=== PATIENT | male | born 1955 | race Caucasian/White ===

== ENCOUNTER 2020-04-26 10:50 | Outpatient (CLI) | payer MEDICARE, BC, SELFPAY ==
--- NOTE | ~2020-04-26 | US_ITS ---
EXAMINATION: US aorta [facility] scrn DATE: 04/26/2020 11:37 CDT INDICATION: High cholesterol TECHNIQUE: Grayscale, color Doppler, and pulsed Doppler images of the aorta and common iliac arteries were obtained. COMPARISON: None. FINDINGS: The proximal aorta measures 2.4 cm greatest sagittal dimension. The mid aorta measures 2.1 cm greates t sagittal dimension. The distal aorta measures 1.9 cm greatest sagittal dimension. The right common internal iliac artery measures 8 mm. The left common iliac artery measures 9 mm. IMPRESSION: 1. Normal caliber aorta without aneurysm. Reviewed, dictated and finalized at location B.
== END 2020-04-26 10:51 | disposition home or self-care (01) ==
LOC: ANHIMG 10:53
PROVIDERS: PCP Internal Medicine; Visit Provider Internal Medicine
DX: Z13.6 Encounter for screening for cardiovascular disorders (principal)
CPT/HCPCS: 76706

== ENCOUNTER 2020-11-01 12:21 | Outpatient (CLI) | payer MEDICARE, BC, SELFPAY ==
--- NOTE | ~2020-11-01 | US_ITS ---
EXAMINATION: US carotid duplex BI DATE: 11/01/2020 13:12 INDICATION: Syncope. TECHNIQUE: Grayscale, color Doppler, and pulsed Doppler images of the cervical carotid arteries were obtained. The degree of vessel stenosis is placed in one of the following categories: normal, <50%, 5 0-69%, >=70% but less than near-occlusion, near-occlusion, or total occlusion. Note that percent sten osis relative to normal distal artery lumen diameter is indirectly measured from velocity measurement s as described by Moisés, et al. Radiology 2003; 229:340-346. COMPARISON: None. FINDINGS: RIGHT: The right common carotid artery (CCA) peak systolic velocity (PSV) is 108 cm/s. The right internal ca rotid artery (ICA) PSV is 78 cm/s. The right ICA end-diastolic velocity (EDV) is 24 cm/s. The right I CA/CCA PSV ratio is 0.7. Grayscale and color Doppler images yield an estimate of <50% diameter reduct ion from plaque in the ICA. There is antegrade flow in the right vertebral artery. LEFT: The left CCA PSV is 93 cm/s. The left ICA PSV is 65 cm/s. The left ICA EDV is 24 cm/s. The left ICA/C CA PSV ratio is 0.7. Grayscale and color Doppler images yield an estimate of <50% diameter reduction from plaque in the ICA. There is antegrade flow in the left vertebral artery. IMPRESSION: 1. <50% stenosis in the right internal carotid artery. 2. <50% stenosis in the left internal carotid artery. Reviewed, dictated and finalized at location A.
--- NOTE | ~2020-11-01 | MR_ITS ---
EXAMINATION: MR brain/brain stem wo con DATE: 11/01/2020 14:10 INDICATION: Lightheadedness. Syncope. Personal history of other diseases of the nervous system. TECHNIQUE: Magnetic resonance imaging (MRI) of the brain and brainstem was performed without intraven ous contrast. Sequences included sagittal and axial T1-weighted FSE, axial diffusion-weighted FS EPI, axial T2*-weighted GRE, axial T2-weighted FLAIR Propeller, and axial T2-weighted Propeller. Apparent diffusion coefficient (ADC) maps were created. COMPARISON: None. FINDINGS: There are acute infarcts in left cerebellum in the expected distribution of left posterior inferior cerebellar artery. There is no intracranial hemorrhage or abnormal mass lesion. There are sc attered areas of nonspecific increased T2-weighted signal intensity in the cerebral white matter, whi ch is within normal limits for the patient's age. The ventricles are normal in size. There is mucosal thickening in the paranasal sinuses. The orbits are normal. There is a trace left mastoid effusion. IMPRESSION: 1. 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 Reviewed, dictated and finalized at location A. IMPRESSION: 1. 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
== END 2020-11-01 12:22 | disposition home or self-care (01) ==
PROVIDERS: PCP Internal Medicine; Visit Provider Internal Medicine
DX: R55 Syncope and collapse (principal); Z86.69 Personal history of other diseases of the nervous system and sense organs; I65.23 Occlusion and stenosis of bilateral carotid arteries; R93.0 Abnormal findings on diagnostic imaging of skull and head, not elsewhere classified
CPT/HCPCS: 70551; 93880

== ENCOUNTER → 2021-05-14 16:11 | Outpatient (CLI) | payer MEDICARE, BC, SELFPAY ==
--- NOTE | ~2021-05-14 | XR_ITS ---
XR knee LT 3V 05/14/2021 16:37 Indication: Left knee pain Procedure: 3 views left knee Comparison: No prior studies for comparison. Findings: No fracture, subluxation or dislocation. There is mild osteoarthritis. Small joint effusion . No foreign bodies. Impression: 1: Mild osteoarthritis of the left knee. 2: Small joint effusion. Reviewed, dictated and finalized at location A. 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 2: Small joint effusion.
== END ==
PROVIDERS: PCP Family Medicine; Visit Provider Family Medicine
DX: M17.12 Unilateral primary osteoarthritis, left knee (principal); M25.462 Effusion, left knee
CPT/HCPCS: 73562

== ENCOUNTER 2021-11-22 10:00 | Outpatient (RCR) | payer MEDICARE, BC, SELFPAY ==
--- NOTE | 2021-10-25 09:55 | PTOPEVAL ---
PHYSICAL THERAPY EVALUATION AND PLAN OF CARE 10-25-21 Thank you for referring Caleb Barbosa to [facility] for the diagnosis of L knee pain.? He is scheduled to be seen for therapy? 1 x/week for 4 weeks. Please review, sign, date and return this plan of care JULIA. I agree with and certify that the following plan of care is medically necessary. Referring Physician Date Attending Provider: Tha Venegas APN Past Medical History Source of Past Medical History Patient Neurological History Hx Other Neurological Disorders Yes: saw neurologist for gait imbalance,tests show dehydration Cardiovascular History Hx Hypercholesterolemia Yes: meds Respiratory History Hx Respiratory Disorders No Significant History Gastrointestinal History Hx Gastrointestinal Disorders No Significant History Musculoskeletal History Hx Back Pain Yes: do stretches daily to help; see chiropractor PRN Hx Other Musculoskeletal Disorders Yes: L knee pain- this PT admit Endocrine History Hx Endocrine Disorders No Significant History Other History Hx Other Medical Conditions Yes: skin cancer removed- benign Evaluation Information Diagnosis L knee pain Onset May 2021 Subjective Information had pop in back of knee with Query Text:As Reported By Patient/ swelling; saw general dr, Family then to ortho; had injection in knee 10-15-21: helped little, but with walking 2 miles- pain returned ; Diagnostic Tests X-Rays For This Problem Yes: mild OA Prior Level of Function Activity Level (Last 3 Months) Occupation retired Activity of Daily Living Ability Independent Indoor/Home Mobility Independent Community Mobility Independent Stairs Ability Independent Functional Cognition (Planning, Shopping Independent , Taking Medications) Cooking Yes Cleaning Yes Laundry Yes Shopping Yes Driving Yes Comments Additional Prior Level of Function normal activity level, could Comments walk 2 miles without pain; bicycle riding- not done in past 3 weeks, but was doing 10 -15 miles; play volleyball with people his age; indep with all home tasks, but takes longer due to move
--- NOTE | 2021-11-08 08:25 | PCPTNOTE ---
pt called and canceled appointment due to covid exposure.
--- NOTE | 2021-11-22 10:37 | PTOPEVAL ---
PHYSICAL THERAPY DISCHARGE 11-22-21 Refer to clinical summary below, for his status today, compared to the initial evaluation. The goals were achieved; discharge PT services. He is to continue with the Home Exercises and use of leukotape for pain control. Thank you for referring Caleb Barbosa to [facility].? Please review, sign, date and return this [employer] Report JULIA. I agree with and certify that the following plan of care is medically necessary. Referring Physician Date Attending Provider: Tha Venegas APN Subjective Information Amado reports: knee is better- Query Text:As Reported By Patient/ less pain, walking normal now, Family went for 4 bike rides of 12 miles each this week; only time had trouble with sleeping , when on R side and L knee twisted; using the tape--helps the knee; Pain Assessment Pain Scale Pain Scale Used Numeric (1 - 10) Self Report Pain Assessment Left Knee(s) Reported Pain Level 1 Pain Description Soreness Pain Frequency Chronic,Intermittent Other Pain Description medial knee joint and posterior knee Lowest Pain Intensity 0 Greatest Pain Intensity 3 Other Pain Aggravating Factors not sure what causes it, as go on and do things during day Pain Score Pain Score 1: Self Report Additional Pain Score Comments report can be up and moving all day, pain in knee does not limit any activity; pt to dept with leukotape strip over medial knee- reports using to ease pain Interventions Used Interventions Used By Clinicians Education,Exercise Other Alleviating Interventions leukotape; no meds or ice-- reinforced PRN use of ice Lower Extremity Range of Motion prone: anterior hip/quad Comments length with knee flexion: R 135' / L 120' sitting: knee flexion 135' extension 0' without pain Gross Lower Extremity Strength functional strength testing L LE: - single leg standin min with good stability -mat exercises with 4# ankle wt: -prone knee flexion x 30 reps; prone hip extension x 20 reps; side lying hip abduction x 25 reps; griffith
== END 2022-01-13 11:55 | disposition home or self-care (01) ==
LOC: ANHPT 10:00
PROVIDERS: PCP Family Medicine; Referring Provider Nurse Practitioner; Visit Provider Nurse Practitioner
DX: M25.562 Pain in left knee (principal)
CPT/HCPCS: 97110; 97112; 97161; 97530

== ENCOUNTER 2022-02-04 09:47 | Outpatient (CLI) | payer MEDICARE, BC, SELFPAY ==
[2022-02-04 20:22] LABS: Alanine Aminotransferase 16 U/L (6-50); Alkaline Phosphatase 109 U/L (38-126); Anion Gap 7 mmol/L (8-16); Aspartate Amino Transferase 32 U/L (17-59); Bilirubin,Total 0.5 mg/dL (0.2-1.3); Blood Urea Nitrogen 17 mg/dL (9-20); Carbon Dioxide 29 mmol/L (22-30); Chloride 99 mmol/L (98-107); Cholesterol 172 mg/dL (0-200); Estimated Glomerular Filt Rate > 60; Glucose 97 mg/dL (65-110); HDL Direct 39 mg/dL; Potassium 4.3 mmol/L (3.4-5.0); Sodium 135 mmol/L (137-145); Triglycerides 107 mg/dL (<150)
[2022-02-04 20:37] LABS: LDL Cholesterol Direct 99 mg/dL
[2022-02-04 20:50] LABS: Prostate Specific Antigen 1.6 ng/mL (< OR = 4.0)
== END 2022-02-04 09:48 | disposition home or self-care (01) ==
LOC: ANHGOSHLAB 09:56
PROVIDERS: PCP Family Medicine; Visit Provider Family Medicine
DX: Z13.228 Encounter for screening for other metabolic disorders (principal); E78.5 Hyperlipidemia, unspecified; Z12.5 Encounter for screening for malignant neoplasm of prostate
CPT/HCPCS: 36415; 80053; 80061; 84153; G0103

== ENCOUNTER 2023-01-29 08:18 | Outpatient (CLI) | payer MEDICARE, BC, SELFPAY ==
[2023-01-29 13:18] LABS: Alanine Aminotransferase 28 U/L (6-50); Albumin Level 4.1 g/dL (3.5-5.1); Alkaline Phosphatase 112 U/L (38-126); Anion Gap 5 mmol/L (8-16); Aspartate Amino Transferase 47 U/L (17-59); Bilirubin,Total 0.9 mg/dL (0.2-1.3); Blood Urea Nitrogen 20 mg/dL (9-20); Calcium 8.9 mg/dL (8.4-10.2); Carbon Dioxide 29 mmol/L (22-30); Chloride 100 mmol/L (98-107); Cholesterol 180 mg/dL (0-200); Estimated Glomerular Filt Rate > 60; Glucose 97 mg/dL (65-110); HDL Direct 43 mg/dL; Potassium 4.3 mmol/L (3.4-5.0); Sodium 134 mmol/L (137-145); Triglycerides 84 mg/dL (<150)
[2023-01-29 13:34] LABS: LDL Cholesterol Direct 105 mg/dL
[2023-01-29 13:47] LABS: Prostate Specific Antigen 1.4 ng/mL (< OR = 4.0)
== END 2023-01-29 08:19 | disposition home or self-care (01) ==
LOC: ANHGOSHLAB 08:21
PROVIDERS: PCP Family Medicine; Visit Provider Family Medicine
DX: E78.5 Hyperlipidemia, unspecified (principal); Z12.5 Encounter for screening for malignant neoplasm of prostate; Z13.228 Encounter for screening for other metabolic disorders
CPT/HCPCS: 36415; 80053; 80061; 84153; G0103

== ENCOUNTER 2023-10-16 09:48 | Outpatient (CLI) | payer MEDICARE, BC, SELFPAY ==
--- NOTE | ~2023-10-16 | XR_ITS ---
EXAM: XR knee RT min 4V DATE: 10/16/2023 10:07 HISTORY: no injury right knee pain for 1-2 years . COMPARISON: None available. FINDINGS: Decreased mineralization. No fracture or dislocation. No lytic or blastic lesion. Mild tri compartmental osteophytosis. Trace joint fluid. No erosion or periosteal change. Minimal atherosclero tic calcification. IMPRESSION: Mild tricompartmental right knee osteoarthritis. Reviewed, dictated and finalized at location K.
--- NOTE | ~2023-10-16 | XR_ITS ---
EXAM: XR shoulder LT min 2V DATE: 10/16/2023 10:04 HISTORY: no injury left shoulder pain for many years . COMPARISON: None available. FINDINGS: Decreased mineralization. No fracture or dislocation. No lytic or blastic lesion. Moderate glenohumeral and mild AC joint degenerative change. Calcification in the superior rotator cuff. No e rosion or periosteal change. Soft tissues within normal limits. IMPRESSION: Calcific rotator cuff tendinitis. Moderate glenohumeral and mild acromioclavicular osteoa rthritis. Reviewed, dictated and finalized at location K. IMPRESSION: Calcific rotator cuff tendinitis. Moderate glenohumeral and mild ac romioclavicular osteoarthritis.
== END 2023-10-16 09:49 ==
PROVIDERS: PCP Family Medicine; Visit Provider Family Medicine
DX: M75.32 Calcific tendinitis of left shoulder (principal); M19.012 Primary osteoarthritis, left shoulder; M17.11 Unilateral primary osteoarthritis, right knee
CPT/HCPCS: 73030; 73564

== ENCOUNTER 2023-11-15 15:43 | Emergency (ER) | payer MEDICARE, BC, SELFPAY ==
--- NOTE | ~2023-11-15 | XR_ITS ---
EXAMINATION: XR chest 2V DATE: 11/15/2023 16:10 INDICATION: Shortness of breath. TECHNIQUE: Frontal and lateral views of the chest were obtained. COMPARISON: None. FINDINGS: There is no pneumonia, pleural effusion, or pneumothorax. The heart size is normal. There i s mild chronic anterior wedging of multiple thoracic vertebral bodies. IMPRESSION: 1. No acute cardiopulmonary disease. Reviewed, dictated and finalized at location E.
--- NOTE | ~2023-11-15 | CT_ITS ---
EXAMINATION: CTA chest PE protocol DATE: 11/15/2023 18:23 INDICATION: Shortness of breath. TECHNIQUE: Computed tomography angiography (CTA) of the chest was performed with 100 mL Omnipaque-350 intravenous contrast timed to evaluate the pulmonary arteries. Coronal maximum intensity projection 3D-reconstructions were created by the technologist. Automated exposure control and iterative reconst ruction technique were employed. The dose-length product was 569.20 mGy-cm. COMPARISON: None. FINDINGS: The lungs demonstrate mild atelectasis. No pleural effusion. The heart size is normal. No p ericardial effusion. There is no pulmonary embolus. There is mild thoracic spondylosis. There is mild chronic height loss of multiple vertebral bodies. IMPRESSION: 1. No pulmonary embolus. Reviewed, dictated and finalized at location E. IMPRESSION: 1. No pulmonary embolus.
[2023-11-15 15:44] VITALS: BP 149/65; PULSE 72; RESP 20; TEMP 37.2; O2SAT 98
--- NOTE | 2023-11-15 15:49 | ED.SOB ---
HPI - SOB/Dyspnea General Chief Complaint: Shortness of Breath/Dyspnea Stated Complaint: difficulty breathing, low grade fever Time Seen by Provider: 11/15/23 15:47 History of Present Illness HPI Narrative: Patient is a 68-year-old male with history of high cholesterol here with difficulty breathing and a fever. Patient notes that symptoms began yesterday. He has had a fever over the last couple days, T-max 101? F. He did take ibuprofen around 2:00 p.m. for his symptoms today. He notes associated shortness of breath, it worsens with any exertion. No cardiac history. No history of PE/DVT/heart failure. No known sick contacts. He denies any increasing cough. Patient's son advised him to come to the emergency department today due to his significant increased work of breathing at home. Patient denies any associated abdominal pain, nausea, vomiting, diarrhea. No urinary symptoms. He has chronic nasal congestion year round this is not changed recently. Related Data Home Medications Medication Instructions Recorded Confirmed cholecalciferol (vitamin D3) 50 50 mcg PO DAILY 10/15/21 10/19/23 mcg (2,000 unit) capsule coenzyme Q10 100 mg capsule 100 mg PO DAILY 10/15/21 10/19/23 loratadine 10 mg capsule 10 mg PO DAILY 10/15/21 10/19/23 felsgdbakcyx-rsyhllau-gqxvad tablet 1 tablet PO DAILY 10/15/21 10/19/23 saw palmetto 450 mg capsule 450 mg PO BID 10/15/21 10/19/23 ascorbic acid (vitamin C) 1,000 mg 1 g PO DAILY 06/26/22 10/19/23 capsule cranberry extract 650 mg capsule 1,300 mg PO DAILY 06/26/22 10/19/23 Allergies Allergy/AdvReac Type Severity Reaction Status Date / Time desmopressin Allergy Unknown rash Verified 11/15/23 16:03 minocycline Allergy Unknown unknown Verified 11/15/23 16:03 Review of Systems Review of Systems: All systems reviewed & are unremarkable except as noted in HPI and below PMFSH Past Medical History Medical History History of basal cell cancer Hyperlipidemia Surgical History Surgical History H/O vasectomy Family History Family History Grandparent Family history of arthritis Family history of Alzheimer's disease Mother Family history of arthritis Family history of Alzheimer's disease Heart disease Sibling Family history of lung cancer Family history of malignant neoplasm of uterus Family history of malignant neoplasm of breast in first degree relative Diabetes mellitus Father Family history of alcoholism Social History Social History Smoking status: Never smoker Alcohol intake: current Drinks per week: 2 Alcohol use details: Beer Substance use: never Substance use type: does not use Lack of Transportation: No Lack of Food: Never True Current Housing: I Have Housing Concerned About Future Housing: No Difficulty Paying Gas/Electric Bills: No Difficulty Paying for Meds: No Currently Unemployed: No Difficulty w/ Childcare or Family Care: No Living arrangements: with family Gender identity (if verbalized by the patient): Male Exam Narrative: GENERAL: Well-appearing, well-nourished, and in no acute distress. HEAD: Normocephalic, atraumatic. EYES: PERRLA and EOMI. ENT: Nares clear. Mucous membranes moist. NECK: Supple. CHEST: Clear to auscultation. No respiratory distress. HEART: Regular rate and rhythm. Normal peripheral pulses. ABDOMEN: Soft, nontender, nondistended. EXTREMITIES: Normal range of motion. No edema. SKIN: Warm to touch, dry, no rash. NEURO: No focal deficits. Alert and oriented x3. PSYCH: Normal mood and affect. Course Course Emergency Course: Chart review performed. Patient here with shortness of breath and low grade fever since yesterday. Triage vitals grossly normal. Last PCP visit on 10/15/23 revi
[2023-11-15 16:00] VITALS: PULSE 79; O2SAT 95
[2023-11-15 16:01] VITALS: BP 144/82; PULSE 77; RESP 16; TEMP 37.3; O2SAT 96
[2023-11-15 16:24] LABS: Basophils Percent Auto 0.2 % (0.2-1.2); Eosinophils Absolute Auto 0.4 K/mm3 (0-0.3); Eosinophils Percent Auto 3.2 % (0-4.4); Hematocrit 47.5 % (42.0-52.0); Immature Granulocyte Absolute 0.09 K/mm3 (0.00-0.031); Immature Granulocyte Percent A 0.7 % (0-0.5); Lymphocytes Absolute Auto 0.45 K/mm3 (0.9-3.2); Lymphocytes Percent Auto 3.5 % (18.3-44.2); Mean Corpuscular HGB Conc 33.7 g/dl (32-36); Mean Corpuscular Hemoglobin 30.9 pg (26-34); Mean Corpuscular Volume 91.9 fl (80-100); Mean Platelet Volume 9.7 fl (7.4-10.4); Monocytes Absolute Auto 0.7 K/mm3 (0.1-0.6); Monocytes Percent Auto 5.3 % (2.6-8.5); Neutrophils Absolute Auto 11.1 K/mm3 (1.3-6.7); Neutrophils Percent Auto 87.1 % (45.5-73.1); Platelet Count Result 152 k/mm3 (150-375); Red Blood Count 5.17 M/mm3 (4.6-6.20); Red Cell Distribution Width 12.4 % (11.5-14.5); White Blood Count 12.7 K/mm3 (4.5-10.0)
[2023-11-15 16:34] LABS: Alanine Aminotransferase 35 U/L (6-50); Albumin Level 4.1 g/dL (3.5-5.1); Alkaline Phosphatase 174 U/L (38-126); Anion Gap 6 mmol/L (4-12); Aspartate Amino Transferase 33 U/L (17-59); Bilirubin,Total 1.1 mg/dL (0.2-1.3); Blood Urea Nitrogen 14 mg/dL (9-20); Carbon Dioxide 24 mmol/L (22-30); Chloride 99 mmol/L (98-107); Estimated CRCL calculation 77 ml/min; Estimated Glomerular Filt Rate > 60; Glucose 150 mg/dL (65-110); Magnesium 1.5 mg/dL (1.6-2.3); Sodium 129 mmol/L (137-145)
--- NOTE | 2023-11-15 16:40 | ECG_ITS ---
SEE SCANNED COPY FOR CONFIRMED REPORT MTDD
[2023-11-15 16:43] LABS: NT Pro B Type Natriuretic Pept 157 pg/mL (19.9-100)
[2023-11-15 16:59] LABS: Influenza A QL RT-PCR Negative (Negative); Influenza B QL RT-PCR Negative (Negative); RSV RNA, RT-PCR Negative (Negative); SARS-CoV-2 RNA PCR Negative (Negative)
[2023-11-15] MEDS: LACTATED RINGERS 1,000 ML 999 ML IV CONT (16:59)
[2023-11-15] MEDS: ACETAMINOPHEN 500 MG TABLET 1000 MG PO (16:59)
[2023-11-15 17:11] LABS: Troponin I < 0.012 ng/mL (0.000-0.034)
[2023-11-15 17:25] LABS: D Dimer 1.45 ug/mL (<0.48)
[2023-11-15] MEDS: MAGNESIUM SULF 2 GM/WATER 50ML 2 GM/50 ML BAG IVPB (18:01)
[2023-11-15 18:04] VITALS: BP 128/68; PULSE 60; RESP 19; O2SAT 95
[2023-11-15 20:11] VITALS: BP 132/71; PULSE 60; RESP 19; O2SAT 95
== END 2023-11-15 20:13 | disposition home or self-care (01) ==
PROVIDERS: Emergency Provider Student in an Organized Health Care Education/Training Program; PCP Family Medicine
DX: J06.9 Acute upper respiratory infection, unspecified (principal); R06.02 Shortness of breath; Z20.822 Contact with and (suspected) exposure to COVID-19; E78.00 Pure hypercholesterolemia, unspecified; Z85.828 Personal history of other malignant neoplasm of skin; R94.31 Abnormal electrocardiogram [ECG] [EKG]
CPT/HCPCS: 36415; 71046; 71275; 80053; 83735; 83880; 84484; 85025; 85380; 87637; 93005; 96361; 96365; 96366; 99284; A9270; J3475; J7120; Q9967

== ENCOUNTER 2023-11-20 09:15 | Outpatient (CLI) | payer MEDICARE, BC, SELFPAY ==
[2023-11-20 18:51] LABS: Hematocrit 47.6 % (42.0-52.0); Hemoglobin 15.5 g/dL (14.0-18.0); Mean Corpuscular HGB Conc 32.6 g/dl (32-36); Mean Corpuscular Hemoglobin 30.6 pg (26-34); Mean Corpuscular Volume 93.9 fl (80-100); Platelet Count Result 158 k/mm3 (150-375); Red Blood Count 5.07 M/mm3 (4.6-6.20); Red Cell Distribution Width 13.1 % (11.5-14.5); White Blood Count 12.5 K/mm3 (4.5-10.0)
[2023-11-20 19:24] LABS: Alanine Aminotransferase 146 U/L (6-50); Albumin Level 3.6 g/dL (3.5-5.1); Alkaline Phosphatase 516 U/L (38-126); Anion Gap 5 mmol/L (4-12); Aspartate Amino Transferase 79 U/L (17-59); Blood Urea Nitrogen 17 mg/dL (9-20); Carbon Dioxide 29 mmol/L (22-30); Chloride 100 mmol/L (98-107); Estimated Glomerular Filt Rate > 60; Glucose 140 mg/dL (65-110); Potassium 3.7 mmol/L (3.4-5.0); Sodium 134 mmol/L (137-145)
== END 2023-11-20 09:16 | disposition home or self-care (01) ==
LOC: ANHGOSHLAB 09:17
PROVIDERS: PCP Family Medicine; Visit Provider Family Medicine
DX: Z13.228 Encounter for screening for other metabolic disorders (principal); R53.83 Other fatigue
CPT/HCPCS: 36415; 80053; 85025

== ENCOUNTER 2023-11-27 08:12 | Outpatient (CLI) | payer MEDICARE, BC, SELFPAY ==
[2023-11-27 13:36] LABS: Alanine Aminotransferase 114 U/L (6-50); Albumin Level 4.1 g/dL (3.5-5.1); Alkaline Phosphatase 305 U/L (38-126); Anion Gap 5 mmol/L (4-12); Aspartate Amino Transferase 71 U/L (17-59); Bilirubin,Total 1.1 mg/dL (0.2-1.3); Blood Urea Nitrogen 24 mg/dL (9-20); Calcium 8.9 mg/dL (8.4-10.2); Carbon Dioxide 29 mmol/L (22-30); Chloride 101 mmol/L (98-107); Estimated Glomerular Filt Rate > 60; Glucose 110 mg/dL (65-110); Potassium 4.6 mmol/L (3.4-5.0); Sodium 135 mmol/L (137-145)
== END 2023-11-27 08:13 | disposition home or self-care (01) ==
PROVIDERS: PCP Family Medicine; Visit Provider Family Medicine
DX: Z13.228 Encounter for screening for other metabolic disorders (principal)
CPT/HCPCS: 36415; 80053

== ENCOUNTER 2023-12-07 08:37 | Outpatient (CLI) | payer MEDICARE, BC, SELFPAY ==
[2023-12-07 13:13] LABS: Alanine Aminotransferase 60 U/L (6-50); Albumin Level 4.2 g/dL (3.5-5.1); Alkaline Phosphatase 182 U/L (38-126); Anion Gap 7 mmol/L (4-12); Aspartate Amino Transferase 58 U/L (17-59); Bilirubin,Total 1.1 mg/dL (0.2-1.3); Blood Urea Nitrogen 15 mg/dL (9-20); Calcium 9.5 mg/dL (8.4-10.2); Carbon Dioxide 27 mmol/L (22-30); Chloride 103 mmol/L (98-107); Estimated Glomerular Filt Rate > 60; Glucose 104 mg/dL (65-110); Potassium 4.4 mmol/L (3.4-5.0); Sodium 137 mmol/L (137-145)
== END 2023-12-07 08:38 | disposition home or self-care (01) ==
PROVIDERS: PCP Family Medicine; Visit Provider Family Medicine
DX: Z13.228 Encounter for screening for other metabolic disorders (principal)
CPT/HCPCS: 36415; 80053

== ENCOUNTER 2024-01-12 11:00 | Outpatient (RCR) | payer MEDICARE, BC, SELFPAY ==
--- NOTE | 2023-10-22 16:26 | OPREHPOC ---
Outpatient Therapy Plan of Care This is a Multidisciplinary Plan of Care that may contain components documented by all disciplines (PT, OT, and ST.) PT Problem 1 PT Problem #1 Knowledge Deficit PT Goal 1 Goal Pt to be IND with issued HEP Target Visit 8 PT Problem 2 PT Problem #2 Pain PT Goal 1 Goal Pt to report knee pain no greater than 3/10 in the last week. Target Visit 8 PT Goal 2 Goal Pt to report 75% improvement in overall symptoms. Target Visit 8 PT Problem 3 PT Problem #3 Impaired Range of Motion PT Goal 1 Goal Pt to demonstrate 10 deg of passive hip extension antonio Target Visit 8 PT Goal 2 Goal Pt to demonstrate prone knee flexion ROM to 110 deg Target Visit 8 PT Problem 4 PT Problem #4 Impaired Gait PT Goal 1 Goal Pt to ambulate with an upright posture. Target Visit 8 PT Problem 5 PT Problem #5 Impaired Strength PT Goal 1 Goal Pt to demonstrate 5xSTS in less than 15s. Target Visit 8
--- NOTE | 2023-10-22 16:26 | PTOPEVAL1 ---
Assessment and note entered by Leticia Tristan, PT, DPT Evaluation Information Assessment Status Evaluation Diagnosis R knee pain Onset 2-3 months Subjective Information Pt reports R knee pain, worsening in the last couple of months, today worse for whatever reason. Pt states he rides a bike 4-5x/wk and does some LE exercises he received previously from his L knee. He declines a ENZO. He states getting up from most low surfaces is what increases his pain the most. Pt also plays softball, plays pickleball, and dances. Reported Pain Level Pain Score 2: Self Report Assessment PT Clinical Summary Amado presents to therapy today for his initial evaluation with a diagnosis of R knee pain. Today he demonstrates good knee ROM and good hip strength. He demonstrates decreased hamstring, ITB , and hip flexor flexibility. He has poor patellar tracking d/t muscular imbalances. Pain limits his functional transfers and stair navigation. Skilled therapy services are indicated to address the deficits noted above, to manage pain, and to return to PLOF. Plan of Care Interventions Electrical Stimulation,Gait Training,Hot Pack/Cold Pack,Manual Therapy,Neuro Re-education,Patient/ Caregiver Educati,Therapeutic Activities, Therapeutic Exercise PT Services Indicated Yes Treatment Frequency and 1x/wk for 6 visits Duration These treatments will address the objective and functional deficits as defined above. The patient will be advanced safely and appropriately in order for the patient to progress towards his/her prior level of function. Additional exercises will be introduced and as well as a comprehensive home exercise program upon discharge, if needed, ?to ensure carryover of functional gains achieved in the clinic. This treatment plan has been reviewed and agreement upon by the patient.
--- NOTE | 2023-11-19 09:36 | PCPTNOTE ---
Patient called to cancel therapy appointment for 11/19/23 due to illness.
--- NOTE | 2023-11-27 16:38 | PTOPPROG ---
Assessment and note entered by Alex Fish, PT Evaluation Information Assessment Status Progress Diagnosis R knee pain Onset 2-3 months Subjective Information Patient reports that overall he has seen a lot of improvement in pain and knee ROM at this time. Overall he feels comfortable and confident with his He and has been doing consistently. HE plans to be traveling outside of the country and would like to follow up when he returns to ensure senior living progress. Assessment PT Clinical Summary Patient has seen excellent progress in knee pain, ROM, and strength. Overall he is independent with HEP but is still struggling with reciprocal climbing of stairs and deep squatting activity. He will be travelling to [place] for 1 month and will benefit from follow up upon return to ensure that he sees terminal gauger progress. Plan of Care Interventions Electrical Stimulation,Gait Training,Hot Pack/Cold Pack,Manual Therapy,Neuro Re-education,Patient/ Caregiver Education,Therapeutic Activities, Therapeutic Exercise PT Services Indicated Yes Treatment Frequency and 1x/week for 2 visits upon return from travel in Duration Mell These treatments will address the objective and functional deficits as defined above. The patient will be advanced safely and appropriately in order for the patient to progress towards his/her prior level of function. Additional exercises will be introduced and as well as a comprehensive home exercise program upon discharge, if needed, ?to ensure carryover of functional gains achieved in the clinic. This treatment plan has been reviewed and agreement upon by the patient.
--- NOTE | 2024-01-12 12:27 | OPREHPOC ---
Outpatient Therapy Plan of Care This is a Multidisciplinary Plan of Care that may contain components documented by all disciplines (PT, OT, and ST.) PT Problem 1 PT Problem #1 Knowledge Deficit PT Goal 1 Goal Pt to be IND with issued HEP Target Visit 8 Progress Met PT Problem 2 PT Problem #2 Pain PT Goal 1 Goal Pt to report knee pain no greater than 3/10 in the last week. Target Visit 8 Progress Met PT Goal 2 Goal Pt to report 75% improvement in overall symptoms. Target Visit 8 Progress Partially Met Comment Continues to struggle with some distal quad pain limiting stair activity PT Problem 3 PT Problem #3 Impaired Range of Motion PT Goal 1 Goal Pt to demonstrate 10 deg of passive hip extension antonio Target Visit 8 Progress Met PT Goal 2 Goal Pt to demonstrate prone knee flexion ROM to 110 deg Target Visit 8 Progress Met PT Problem 4 PT Problem #4 Impaired Gait PT Goal 1 Goal Pt to ambulate with an upright posture. Target Visit 8 Progress Met PT Problem 5 PT Problem #5 Impaired Strength PT Goal 1 Goal Pt to demonstrate 5xSTS in less than 15s. Target Visit 8 Progress Met PT Goal 2 Goal Patient will demonstrate ability to reciprocally climb and descend stairs without pain Target Visit 8 Progress Met
--- NOTE | 2024-01-12 12:27 | PTOPDC ---
Assessment and note entered by Alex Fish, PT Evaluation Information Assessment Status Discharge Diagnosis R knee pain Onset 2-3 months Subjective Information Reports that overall he has been having improvement with his right knee but he still always has a little bit of pain. when he is in positions where his knee is bent for a long time it hurts him to move it. Doing better on steps at this point and is back to riding a bicycle. Does not have pain on the bicycle. Riding about 30 miles at a time with an electric bicycle. Reported Pain Level Pain Score 1: Self Report Assessment PT Clinical Summary Patient met all goals for therapy at this time and is suitable for discharge to [facility] at this time. Patient has understanding of what needs to be focused on moving forward. Plan of Care PT Services Indicated D/C to [facility]
== END 2024-01-12 13:18 | disposition home or self-care (01) ==
LOC: ANHGOSHPT 11:00
PROVIDERS: PCP Family Medicine; Visit Provider Family Medicine
DX: M25.561 Pain in right knee (principal)
CPT/HCPCS: 36415; 80053; 97110; 97140; 97161

== ENCOUNTER 2024-12-07 11:12 | Outpatient (CLI) | payer MEDICARE, BC, SELFPAY ==
--- NOTE | ~2024-12-07 | XR_ITS ---
AP and lateral views of the bilateral hips Clinical history: Pain Findings: No acute fracture or dislocation is seen. Osseous alignment is anatomic. Bilateral hip and SI joint spaces are preserved. Soft tissues are unremarkable. Impression: No significant abnormality is seen. Reviewed, dictated and finalized at location . Impression: No significant abnormality is seen.
== END 2024-12-07 11:13 | disposition home or self-care (01) ==
LOC: GOSHIMG 11:12
PROVIDERS: PCP Nurse Practitioner; Visit Provider Nurse Practitioner
DX: M25.551 Pain in right hip (principal); M25.552 Pain in left hip
CPT/HCPCS: 73521

== ENCOUNTER 2025-01-10 17:23 | Inpatient (IN) | payer MEDICARE, BC, SELFPAY ==
--- NOTE | ~2025-01-10 | XR_ITS ---
XR hip LT 2V w AP pelvis Ordering provider: Tina Gannon History: . fall . Comparison: December 07, 2024 FINDINGS: BONES: Fracture of the left femoral neck. HIP JOINT SPACES: Mild bilateral osteoarthritic changes. SACROILIAC JOINT SPACES/LUMBAR SPINE: The sacroiliac joint spaces shows a right sacroiliitis.. Mild d egenerative changes of the visualized lower lumbar spine. PUBIC SYMPHYSIS: Normal. SOFT TISSUES: Normal. IMPRESSION: Fracture of the left femoral neck. Reviewed, dictated and finalized at location A.
--- NOTE | ~2025-01-10 | XR_ITS ---
HISTORY: XTABLE LATERAL REQUEST BY ORTHO COMPARISON: 01/11/2024 TECHNIQUE: Single crosstable lateral view of the left hip was performed. FINDINGS: Redemonstration of a left femoral neck fracture. IMPRESSION: As above. Reviewed, dictated and finalized at location A. IMPRESSION: As above.
--- NOTE | ~2025-01-10 | XR_ITS ---
XR chest 1V Ordering provider: Tina Gannon MD History: 69 years Male with . POSSIBLE FRACTURE OF HIP . Comparison: November 15, 2023 FINDINGS: MEDIASTINUM: The cardiac silhouette is not enlarged. LUNGS: No infiltrates, effusions or pneumothorax. OTHER: No free air under the diaphragm. IMPRESSION: No acute cardiopulmonary pathology. Reviewed, dictated and finalized at location A.
--- NOTE | ~2025-01-10 | XR_ITS ---
EXAMINATION: XR surgery orthopedic DATE: 01/12/2025 11:54 INDICATION: Left hip intertrochanteric nailing. TECHNIQUE: 2 fluoroscopic images of the left hip were obtained during procedure performed by Dr. Bradford puri. Radiologist was not present for the imaging or procedure. The amount of fluoroscopy time used du ring this procedure was 2.0 minutes. Total DAP was 10.223 mGym^2. COMPARISON: CT dated 01/10 2025 FINDINGS: Again seen is a nondisplaced transcervical fracture of the proximal left femur which is fixed with 3 cannulated lag screws. Alignment remains near-anatomic. No new fractures identified. IMPRESSION: 1. Near-anatomic alignment post bike screw fixation of a nondisplaced transcervical fracture of the p roximal left femur. Reviewed, dictated and finalized at location A. IMPRESSION: 1. Near-anatomic alignment post bike screw fixation of a nondisplaced transcerv ical fracture of the proximal left femur.
--- NOTE | ~2025-01-10 | CT_ITS ---
Procedure: CT hip LT wo con Ordering provider: Pineda Sterling MD History: . Femoral neck fracture . Comparison: None. Technique: Thin slice axial CT of the No IV contrast was given. Sagittal and coronal reformatted imag es were also obtained and reviewed. Radiation reduction technique utilized.The dose-length product wa s 445.74 mGy-cm. Findings: BONES: Fracture in the left femoral neck is noted. JOINT SPACES: Mild osteoarthritic changes. SOFT TISSUES: IMPRESSION: Impacted fracture of the left femoral neck. Reviewed, dictated and finalized at location A.
--- OUTSIDE RECORDS SUMMARY | 2025-01-10 17:25 | XMS_ITS | Clinical Summary ---
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 Name Role Phone Unavailable Primary Care Provider Unavailabl e Social History Tobacco Use Types Packs/Day Years Used Date Smoking Tobacco: Never Assessed Sex and Gender Information Value Date Recorded Sex Assigned at Not on file Legal Sex Male 7:58 PM CDT Gender Identity Not on file Sexual Orientation Not on file Plan of Treatment Health Maintenance Due Date Last Done Comments Colorectal Cancer Screening Colonoscopy (10 Years) 1955 Hepatitis C 1972 DTaP, Tdap and Td Vaccines ( 1 - Tdap) 1973 Pneumococcal Vaccine: 50+ Ye ars (1 of 1 - PCV) 2004 Zoster Vaccines (1 of 2) 2004 COVID-19 Vaccine ( - 2023-2 5 season) 2024 RSV Immunization or 60+ Years (1 - 1-dose 75+ series) 2029 Meningococcal B Vaccine Aged Out No l onger eligible based on patient's age to complete this topic Meningococcal Vaccine Aged Out No arnel skyler eligible based on patient's age to complete this topic RSV Immunizations Under 20 Months Aged Out No longer eligible based on patient's age to complete this topic
--- OUTSIDE RECORDS SUMMARY | 2025-01-10 17:25 | XMS_ITS | Referral Summary ---
Author Organization [facility] Address [address] [place] [id number] Care Team Providers Care Loan Servicing Representative Name Role Phone Julian Mcmahon MD Primary Care Provider [phone] Encounters Date Type Department Care Team Description 10/17/2024 10:00 AM CDT Office Visit [facility] Dermatology [address] [place] [address] [address] [place] [address] Kati Mahoney MD History of nonmelanoma skin cancer (Primary Dx); Multiple benign nevi; Luz angioma; Lentigines; Sebaceous hyperplasia of face; Seborrheic keratosis; Actinic keratosis from Last 3 Months Allergies Active Allergy Reactions Criticality Noted Date Comments Minocycline Rash Medium 01/08/2016 Medications loratadine (CLARITIN) 10 mg tablet Take 10 mg by mouth daily 08/18/2016 Active coenzyme Q10 100 mg capsule Take 100 mg by mouth daily Active cholecalciferol (VITAMIN D-3) 2,000 unit capsule Take by mouth Active traZODone (DESYREL) 50 mg tablet Take 50 mg by mouth nightly Active aspirin 325 mg enteric coated tablet Take 325 mg by mouth daily 01/31/2021 Active atorvastatin (LIPITOR) 20 mg tablet Take 20 mg by mouth daily 01/19/2021 Active cranberry 400 mg capsule Take by mouth Activ e srijbdoz-gak-EP -lycopen-lutein 300-600-300 mcg tablet Take by mouth Active saw palmetto 160 mg capsule Take by mouth A ctive ascorbic acid (VITAMIN C ORAL) Take by mouth Active losartan (COZAAR) 25 mg tablet TAKE 1 TABLET BY MOUTH EVERY DAY IN THE MORNING FOR BLOOD PRESSURE 10/07/2024 Active Active Problems Problem Noted Date Diagnosed Date Cerebellar infarction Assessment & Plan (02/28/2021 3:22 PM CDT): Patient had recurrent painless transient horizontal diplopia associated with gait instability and ultimately was found to have a cerebellar ischemic infarction. He has been started on aspirin therapy in addition anti lipid therapy at this time and has remained neurologically asymptomatic nearly 2 months.. I have asked him to follow-up with his PCP for referral to a design manager of PCPs preference for consideration of extended cardiac monitoring to screen for paroxysmal atrial fibrillation as well as consideration of a transthoracic echocardiogram to exclude wall motion abnormalities, valvular abnormality, and mural thrombi as potential etiologies for ischemic cerebellar infarction that would necessitate potential treatment with anticoagulation in lieu of antiplatelet therapy if present. He will follow-up in neurology clinic on an as-needed basis. Social History Tobacco Use Types Packs/Day Years Used Date Smoking Tobacco: Never Smokeless Tobacco: Never Personal Safety Answer Date Recorded Getting School Help Needed Not on file 09/04 Sex and Gender Information Value Date Recorded Sex Assigned at Not on file Legal Sex Male 6:13 AM CDT Gender Identity Not on file Sexual Orientation Not on file Last Filed Vital Signs Vital Sign Reading Time Taken Comments Blood Pressure 120/70 02/28/2021 2:19 PM CDT Pulse 71 02/28/2021 2:19 PM CDT Temperature 36.6 C (97.8 F) 02/28/2021 2:19 PM CDT Respiratory Rate - - Oxygen Saturation - - Inhaled Oxygen Concentration - - Weight 97 kg (213 lb 12.8 oz) 02/28/2021 2:19 PM CDT Height 185.4 cm (6' 1) 02/28/2021 2:19 PM CDT Body Mass Index 28.21 02/28/2021 2:19 PM CDT Plan of Treatment Not on file Insurance MEDICARE [employer] [place] MEDIC[place] [employer] [place] Care Teams Loan Servicing Representative Relationship Specialty Start Date End Date Julian Mcmahon MD [address] [place] [address] PCP - General Internal Medicine 09/14/18
--- OUTSIDE RECORDS SUMMARY | 2025-01-10 17:25 | XMS_ITS | Data Portability ---
Author Organization [facility] [place], [facility], [facility] Address [address] [place] [address] Care Team Providers Care Endocrinologist Name Role Phone DARA LUNDBERG Primary Care Provider DARA LUNDBERG Referring Provider Assessment No assessment recorded. Plan of Treatment Reminders Order Date Submit Date Provider Last Modified By Organization Details Last Modified Time Details Appointments None recorded. Lab alkaline phosphatase isoenzymes, serum or plasma 2024 025 [place] [address] [facility], [address], [place], [address], 5 17:38:51 venipunctur e 2024 025 [place] [address] [facility], [address] [place], [address], 5 17:38:51 HbA1c (hemoglobin A1c), blood 2024 025 [place] [address] [facility], [address] [place], [address], 5 17:38:51 microalbumi n/creatinin e, ratio, urine 2024 025 [place] [address] [facility], [address], [place], [address], 5 17:38:51 C-reactive protein, quantitativ e, serum or plasma [address] [facility], [address], [place], [address], 5 17:38:51 erythrocyte sedimentati on rate by westergren method [address] [facility], [address] [facility] [address], [place], [address], 5 17:38:51 uric acid, serum or plasma [address] [facility], [address], [place], [address], 5 17:38:51 CK (creatine kinase), total, serum [address] [facility], [address] [facility] [address], [place], [address], 5 17:38:51 FAYE (antinuclea r antibodies) screen, ifa, serum [address] [facility], [address] [facility] [address], [place], [address], 5 17:38:51 rf (rheumatoid factor) + anti-ccp abs, serum [address] [facility], [address] [facility] [address], [place], [address], 5 17:38:51 lipid panel, serum [address] [facility], [address] [facility] [address], [place], [address], 5 17:38:51 CMP, serum or plasma [address] [facility], [address], [place], [address], 5 17:38:51 CBC [address] [facility], [address], [place], [address], 5 17:38:51 CBC 2024 025 [facility], [address], [place], [address], 5 19:18:47 urinalysis, complete 2024 025 [facility], [address], [place], [address], 5 19:13:22 lipid panel, serum 2024 025 [facility], [address], [place], [address], 5 19:08:21 CMP, serum or plasma 2024 025 [facility], [address], [place], [address], 5 19:08:18 CK (creatine kinase), total, serum 2024 025 [facility], [address], [place], [address], 5 19:08:15 HbA1c (hemoglobin A1c), blood 2024 025 [facility], [address], [place], [address], 5 19:01:02 PSA, serum or plasma 2024 025 [facility], [address], [place], [address], 5 19:13:14 venipunctur e [email or web address] [place] [address] [facility], [address], [place], [address], 5 17:07:12 T4, free, serum 2024 025 [facility], [address], [place], [address], 5 19:13:07 TSH, serum or plasma 2024 025 [facility], [address], [place], [address], 5 19:13:16 vitamin D, 25-hydroxy, total, serum 2024 025 [facility], [address], [place], [address], 5 19:13:21 hepatitis C Ab, serum 2024 025 [facility], [address], [place], [address], 5 19:13:10 Referral None recorded. Procedures None recorded. Surgeries None recorded. Imaging US, echocardiog yeyo 2024 025 [facility], [facility], All Locations, [place], [address], 14:09:44 Medication Orders losartan 25 mg tablet 2024 025 [id number], [address] [place], [place], [id number], 23:44:36 Patient TargetsNo targets recorded. Patient Instructions Encounter Date Encounter Id Patient Instructions Last Modified By Organization Details Last Modified Time 09/05/2024 [id number] We discussed you r current symptoms and health concerns: - You mentioned experiencing mild congestion and phlegm. If you need an blts-bqk-[id number] medication for congestion that will not raise your blood pressure, I recommend Coricidin HBP (look for the box with a red heart). - You reported no fever, chills, or other concerning symptoms. We discussed your blood pressure: - Your blood pressure was elevated when first checked but improved after sitting for a while (138/80). - Since you do not have a blood pressure cuff at home, I recommend purchasing one to monitor your blood pressure regularly. A good option is the Omron brand. - Please bring your blood pressure readings to your next visit here or with your physician [facility] so we can ensure accuracy and assess any trends. We discussed your heart health: - I detected a questionable heart murmur during your exam. To evaluate this further and check for any issues with your heart valves or left ventricle, I recommend an echocardiogram (heart ultrasound). This is a non-invasive test with no needles or dyes. - Please call the number provided to schedule the echocardiogram at your convenience. We discussed your cholesterol: - You are currently taking atorvastatin, and your cholesterol appears to be well-controlled. No changes to your medication are needed at this time. We discussed your routine health maintenance: - Your last colonoscopy was in 2014 and was normal. You mentioned planning to have another one this year. Please follow up with your physician [facility] to schedule this. - You are up to date on your vaccines, including the pneumonia, COVID, and shingles vaccines. We discussed lab work: - I recommend fasting lab work to establish a baseline for comparison with your previous results. Since you have already eaten today, please schedule a morning fasting lab appointment at the [facility] before leaving. Follow-up plan: - Monitor your blood pressure at home if you purchase a cuff, and bring your readings to your next visit. - Schedule the echocardiogram and fasting lab work as discussed. - We will review your lab and echocardiogram results during a follow-up televisit to ensure everything is on track. If you have any questions or concerns before your next visit, please feel free to reach out. [email or web address] Not available 09/05/2024 16:46:19 10/06/2024 [id number] We discussed you r recent lab results: - Your urinalysis, blood count, kidney function, liver function, and vitamin D levels were all normal. Continue taking your vitamin D supplement as it is maintaining excellent levels. - Your PSA (prostate-specific antigen) was normal at 1.87, well below the threshold of 4. - Your blood sugar on the day of testing was normal, but your A1c (a 3-month average of blood sugar) was slightly elevated at 5.9, placing you in the pre-diabetic range. - To address this, follow a high-protein, low-carbohydrate diet. Limit bread, rice, pasta, and potatoes, and focus on lean meats, fish, and vegetables. - There is a family history of diabetes, so it is important to monitor your diet closely to prevent progression. - Your cholesterol was mostly within goal: - Total cholesterol: 179 (goal is below 180). - Triglycerides: 126 (goal is below 150). - HDL (good cholesterol): 41 (goal is 40 or higher). - LDL (bad cholesterol): 113 (goal is below 80). To improve LDL, increase fiber intake through foods like oats or a fiber supplement (e.g., Benefiber Clear) and focus on a plant-based diet with lean meats, fish, and vegetables. - Your alkaline phosphatase (alk phos) was elevated at 206 (normal is below 128). This enzyme can be elevated due to bone, liver, or gastrointestinal issues. Given your history of joint pain (knees and shoulders), this may be related to arthritis. - We will repeat this test in December, along with an isoenzyme test to determine the source of the elevation. We discussed your blood pressure: - Your home blood pressure readings are consistently elevated, with some readings as high as 177/100. - To address this, I am starting you on losartan 25 mg once daily in the morning. This medication helps lower blood pressure without causing significant side effects. - Continue monitoring your blood pressure at home and keep a record of your readings. - Reduce sodium intake by avoiding added salt and limiting processed and restaurant foods. We discussed your heart health: - Your recent echocardiogram showed mild aortic valve calcification (aortic valve stenosis). This is not currently causing any symptoms and does not require treatment at this time. - We will monitor this yearly with an echocardiogram to ensure it does not progress. - You reported no chest pain, shortness of breath, or fluid retention, which is reassuring. We discussed your current medications: - You are currently taking atorvastatin 20 mg. To improve its effectiveness, I recommend switching to taking it at night instead of in the morning. This aligns with how the liver processes cholesterol. Follow-up plan: - Repeat labs in December to recheck your cholesterol, A1c, and alkaline phosphatase with isoenzymes. Coordinate with your provider in [place] to have these labs done. - Continue with your yearly echocardiogram to monitor your aortic valve calcification. - Follow up with your provider in [place] over the summer. If you need anything from me, I will see you when you return in May. My staff will set up your follow-up appointment for the fall. If you have any questions or concerns about your care plan, please let me know. [email or web address] Not available 10/06/2024 16:29:55 Reason for Referral None Reported. Results Created Date Observation Date Name Description Value Unit Range Abnormal Flag Note LastModifiedBy Organization Detail LastModifiedTime 09/06/1909/05/2024 A1C hemoglobin A1C 5.9 % 4.3 - 5.6 high ADA Recom nikolay d guide lines for HgbA1 C%: 5.7-6 .4% Predi abeti c < 7.0% Reaso nable glyce florencio goal for non-p regna nt adult s < 8.0% Appro priat e for patie nts with hypog lycem ia or advan hugo micro /macr o vascu lar compl icati ons Not Available [facility] [address] [place], [place] [address]y [address], [place], [address], 09/05/2024 19:01:02 09/06/19 25 09/05/2024 A1C estimated average glucose 123 mg/dL 97 - 140 Not Available [facility] [address] [facility] [address] [place], [address], 09/05/2024 19:01:02 09/06/19 25 09/05/2024 CK creatine kinase 63 U/L 30 - 223 Not Available [facility] [address] [facility] [address] [place], [address], 09/05/2024 19:08:15 09/06/19 25 09/05/2024 CMP, COMPR EHENS VIDYA METAB OLIC PANEL glucose 89 mg/dL 70 - 100 Not Available [facility] [address] [facility] [address] [place], [address], 09/05/2024 19:08:18 09/06/19 25 09/05/2024 CMP, COMPR EHENS VIDYA METAB OLIC PANEL BUN 17 mg/dL 7 - 25 Not Available [facility] [address] [facility] [address] [place], [address], 09/05/2024 19:08:18 09/06/19 25 09/05/2024 CMP, COMPR EHENS VIDYA METAB OLIC PANEL creatinine 0.9 mg/dL 0.6 - 1.3 Not Available [facility] [address] [facility] [address] [place], [address], 09/05/2024 19:08:18 09/06/19 25 09/05/2024 CMP, COMPR EHENS VIDYA METAB OLIC PANEL BUN/creatini ne ratio 19 calc 10 - 25 Not Available [facility] [address] [facility] [address] [place], [address], 09/05/2024 19:08:18 09/06/19 25 09/05/2024 CMP, COMPR EHENS VIDYA METAB OLIC PANEL GFR 92 mL/mi n/1.7 3m^2 >60 GFR < 60 mL/mi n for 3 or more month s may be indic ative of Kidne y Disea se. The GFR is based on the CKD-E PI 2020 equat ion. Not Available [facility] [address] [facility] [address], [place], [address], 09/05/2024 19:08:18 09/06/19 25 09/05/2024 CMP, COMPR EHENS VIDYA METAB OLIC PANEL sodium 137 mmol/ L 135 - 145 Not Available [facility] [address] [facility] [address], [place], [address], 09/05/2024 19:08:18 09/06/19 25 09/05/2024 CMP, COMPR EHENS VIDYA METAB OLIC PANEL potassium 4.8 mmol/ L 3.5 - 5.5 Not Available [facility] [address] [facility] [address], [place], [address], 09/05/2024 19:08:18 09/06/19 25 09/05/2024 CMP, COMPR EHENS VIDYA METAB OLIC PANEL chloride 100 mmol/ L 100 - 115 Not Available [facility] [address] [facility] [address], [place], [address], 09/05/2024 19:08:18 09/06/19 25 09/05/2024 CMP, COMPR EHENS VIDYA METAB OLIC PANEL CO2 27 mmol/ L 21 - 33 Not Available [facility] [address] [facility] [address], [place], [address], 09/05/2024 19:08:18 09/06/19 25 09/05/2024 CMP, COMPR EHENS VIDYA METAB OLIC PANEL calcium 9.5 mg/dL 8.8 - 10.6 Not Available [facility] [address] [facility] [address], [place], [address], 09/05/2024 19:08:18 09/06/19 25 09/05/2024 CMP, COMPR EHENS VIDYA METAB OLIC PANEL total protein 6.9 g/dL 6.2 - 8.6 Not Available [facility] [address], [place], [address], 09/05/2024 19:08:18 09/06/19 25 09/05/2024 CMP, COMPR EHENS VIDYA METAB OLIC PANEL globulin 2.6 g/dL 1.3 - 4.0 Not Available [facility] [address], [place], [address], 09/05/2024 19:08:18 09/06/19 25 09/05/2024 CMP, COMPR EHENS VIDYA METAB OLIC PANEL albumin 4.3 g/dL 3.5 - 5.7 Not Available [facility] [address], [place], [address], 09/05/2024 19:08:18 09/06/19 25 09/05/2024 CMP, COMPR EHENS VIDYA METAB OLIC PANEL A/G ratio 1.7 calc 1.0 - 2.8 Not Available [facility] [address] [place], [place] [address]y [address], [place], [address], 09/05/2024 19:08:18 09/06/19 25 09/05/2024 CMP, COMPR EHENS VIDYA METAB OLIC PANEL AST (SGOT) 22 U/L 13 - 39 Not Available [facility] [address] [place], [place] [address], [place], [address], 09/05/2024 19:08:18 09/06/19 25 09/05/2024 CMP, COMPR EHENS VIDYA METAB OLIC PANEL ALT (SGPT) 22 U/L 7 - 52 Not Available [facility] [address] [place], [place] [address]y [address], [place], [address], 09/05/2024 19:08:18 09/06/19 25 09/05/2024 CMP, COMPR EHENS VIDYA METAB OLIC PANEL alkaline phosphatase 206 U/L 20 - 128 high Not Available [facility] [address] [facility] [address] [place], [address], 09/05/2024 19:08:18 09/06/19 25 09/05/2024 CMP, COMPR EHENS VIDYA METAB OLIC PANEL total bilirubin 0.8 mg/dL 0.3 - 1.0 Not Available [facility] [address] [facility] [address], [place], [address], 09/05/2024 19:08:18 09/06/19 25 09/05/2024 LIPID PANEL REF DLDL cholesterol 179 mg/dL <200 Expec santana resul ts for Adult s: Total Vangie stero l: Risk class ifica tion < 200 mg/dL Ted able 200-2 39 mg/dL Borde rline high >240 mg/dL High Not Available [facility] [address] [facility] [address], [place], [address], 09/05/2024 19:08:21 09/06/19 25 09/05/2024 LIPID PANEL REF DLDL triglyceride 126 mg/dL 30 - 150 Not Available [facility] [address] [facility] [address] [place], [address], 09/05/2024 19:08:21 09/06/19 25 09/05/2024 LIPID PANEL REF DLDL HDL cholestrol 41 mg/dL >50 low Not Available [facility] [address] [facility] [address] [place], [address], 09/05/2024 19:08:21 09/06/19 25 09/05/2024 LIPID PANEL REF DLDL LDL calculated 113 mg/dL 0 - 99 high Not Available [facility] [address] [facility] [address] [place], [address], 09/05/2024 19:08:21 09/06/19 25 09/05/2024 LIPID PANEL REF DLDL chol/HDL risk ratio 4 calc < 5.0 Optim al Not Available [facility] [address] [facility] [address], [place], [address], 09/05/2024 19:08:21 09/06/19 25 09/05/2024 LIPID PANEL REF DLDL non-HDL cholesterol 138 mg/dL <130 high Ted able < 130 mg/dL Not Available [facility] [address] [facility] [address], [place], [address], 09/05/2024 19:08:21 09/06/19 25 09/05/2024 T4, FREE free T4 1.160 NG/dL 0.930 - 1.770 Not Available [facility] [address] [facility] [address] [place], [address], 09/05/2024 19:13:07 09/06/19 25 09/05/2024 HEPAT ITIS C AB W/ REFLE X TO HCVRN A QN, PCR hepatitis C Ab w/refl to hcvrna, qn, PCR NON-RE ACTIVE non-re active Inter preti ve comme nt: <0.90 Non React vidya = no antib odies to HCV were detec santana. 0.90 to 0.99 Equiv ocal = undet ermin ed resul t, pleas e retes t. >=1.0 0 React vidya = antib odies to HCV detec santana. Sampl e will be sent to refer ence lab for confi rmato ry testi ng by PCR. Not Available [facility] [address] [facility] [address], [place], [address], 09/05/2024 19:13:10 09/06/19 25 09/05/2024 PSA SCREE N PSA, total 1.87 NG/mL 0.00 - 6.50 Updat ed range s in accor dance with ACS stand ards: AGE: Refer ence Range : < 50 yr 0.00- 2.50 ng/mL 50-59 yr 0.00- 3.50 ng/mL 60-69 yr 0.00- 4.50 ng/mL > 70 yr 0.00- 6.50 ng/mL Age speci fic jaclyn l value s from the liter ature for PSA are provi ded as a guide only. No one decis ion level is appro priat e when utili zing PSA in scree germán situa tion, age, famil y histo ry, previ ous value s, and other facto rs shoul d be used in decis ions invol ving PSA value s. Not Available [facility] [address] [facility] [address], [place], [address], 09/05/2024 19:13:14 09/06/19 25 09/05/2024 TSH, THYRO ID STIMU LATIN G HORMO NE TSH 0.6090 uIU/m L 0.2700 - 4.2000 Not Available [facility] [address] [facility] [address], [place], [address], 09/05/2024 19:13:16 09/06/19 25 09/05/2024 VITAM IN D, 25-HY DROXY vitamin D, 25 hydroxy 62.70 NG/mL >=30.0 0 The [employer] ation consi ders level s < 30 ng/mL to be insuf ficie nt or defic ient. Not Available [facility] [address] [facility] [address] [place], [address], 09/05/2024 19:13:21 09/06/19 25 09/05/2024 URINA LYSIS , COMPL ETE W/ REFLE X TO CULTU RE color YELLOW yellow Not Available [facility] [address] [facility] [address], [place], [address], 09/05/2024 19:13:22 09/06/19 25 09/05/2024 URINA LYSIS , COMPL ETE W/ REFLE X TO CULTU RE appearance CLEAR clear, cloudy Not Available [facility] [address] [place] [address] [address], [place], [address], 09/05/2024 19:13:22 09/06/19 25 09/05/2024 URINA LYSIS , COMPL ETE W/ REFLE X TO CULTU RE specific gravity 1.021 1.005- 1.030 Not Available [facility] [address] [place] [address] [address], [place], [address], 09/05/2024 19:13:22 09/06/19 25 09/05/2024 URINA LYSIS , COMPL ETE W/ REFLE X TO CULTU RE pH 6.0 5.0-8. 0 Not Available [facility] [address] [place] [address] [address], [place], [address], 09/05/2024 19:13:22 09/06/19 25 09/05/2024 URINA LYSIS , COMPL ETE W/ REFLE X TO CULTU RE glucose, urine NEGATI VE mg/dL negati ve Not Available [facility] [address] [place] [address] [address], [place], [address], 09/05/2024 19:13:22 09/06/19 25 09/05/2024 URINA LYSIS , COMPL ETE W/ REFLE X TO CULTU RE bilirubin NEGATI VE mg/dL negati ve Not Available [facility] [address] [place] [address] [address], [place], [address], 09/05/2024 19:13:22 09/06/19 25 09/05/2024 URINA LYSIS , COMPL ETE W/ REFLE X TO CULTU RE ketone 1+ mg/dL negati ve abnormal Not Available [facility] [address] [place] [address] [address], [place], [address], 09/05/2024 19:13:22 09/06/19 25 09/05/2024 URINA LYSIS , COMPL ETE W/ REFLE X TO CULTU RE urobilinogen NORMAL E.U./ dL normal Not Available [facility] [address] [place] [address] [address] [facility], [place], [address], 09/05/2024 19:13:22 09/06/19 25 09/05/2024 URINA LYSIS , COMPL ETE W/ REFLE X TO CULTU RE protein NEGATI VE mg/dL negati ve Not Available [facility] [address] [place] [address] [address], [place], [address], 09/05/2024 19:13:22 09/06/19 25 09/05/2024 URINA LYSIS , COMPL ETE W/ REFLE X TO CULTU RE nitrite NEGATI VE negati ve Not Available [facility] [address] [place] [address], [address], 09/05/2024 19:13:22 09/06/19 25 09/05/2024 URINA LYSIS , COMPL ETE W/ REFLE X TO CULTU RE blood, urine NEGATI VE mg/dL negati ve Not Available [facility] [address] [place] [address], [place], [address], 09/05/2024 19:13:22 09/06/19 25 09/05/2024 URINA LYSIS , COMPL ETE W/ REFLE X TO CULTU RE leukocytes NEGATI VE oanh/u L negati ve A micro scopi c will refle x for: > or = trace blood , > or = 25 leuko cytes , + Nitri brandon or > or = 1+ prote in. Urine cultu re will refle x when any of the follo wing crite kathi is met: + Nitri brandon > or = 75 leuko cytes > or = 6 WBC/h pf Many bacte kathi and/o r any amoun t of yeast on micro scopi c. Not Available [facility] [address] [place] [address] By, [place], [address], 09/05/2024 19:13:22 09/06/19 25 09/05/2024 CBC W/ AUTOD IFF, COMPL ETE BLOOD COUNT WBC 10.0 K/uL 3.6 - 10.0 Not Available [facility] [address], [place], [address], 09/05/2024 19:18:47 09/06/19 25 09/05/2024 CBC W/ AUTOD IFF, COMPL ETE BLOOD COUNT RBC 5.3 M/uL 4.1 - 5.8 Not Available [facility] [address] [place] [address] [address], [place], [address], 09/05/2024 19:18:47 09/06/19 25 09/05/2024 CBC W/ AUTOD IFF, COMPL ETE BLOOD COUNT hemoglobin 16.5 g/dL 13.2 - 17.0 Not Available [facility] [address] [place], [place] [address]y [address], [place], [address], 09/05/2024 19:18:47 09/06/19 25 09/05/2024 CBC W/ AUTOD IFF, COMPL ETE BLOOD COUNT hematocrit 48.8 % 37.0 - 51.0 Not Available [facility] [address] [place], [place] [address]y [address], [place], [address], 09/05/2024 19:18:47 09/06/19 25 09/05/2024 CBC W/ AUTOD IFF, COMPL ETE BLOOD COUNT MCV 91.6 fL 80.0 - 99.0 Not Available [facility] [address], [place], [address], 09/05/2024 19:18:47 09/06/19 25 09/05/2024 CBC W/ AUTOD IFF, COMPL ETE BLOOD COUNT MCH 31.0 pg 27.0 - 33.0 Not Available [facility] [address], [place], [address], 09/05/2024 19:18:47 09/06/19 25 09/05/2024 CBC W/ AUTOD IFF, COMPL ETE BLOOD COUNT MCHC 33.8 g/dL 32.0 - 36.0 Not Available [facility] [address], [place], [address], 09/05/2024 19:18:47 09/06/19 25 09/05/2024 CBC W/ AUTOD IFF, COMPL ETE BLOOD COUNT RDW 14.0 % 11.0 - 15.0 Not Available [facility] [address], [place], [address], 09/05/2024 19:18:47 09/06/19 25 09/05/2024 CBC W/ AUTOD IFF, COMPL ETE BLOOD COUNT nucleated RBC 0 % 0 - 2 Not Available [facility] [address], [place], [address], 09/05/2024 19:18:47 09/06/19 25 09/05/2024 CBC W/ AUTOD IFF, COMPL ETE BLOOD COUNT platelet 223 K/uL 140 - 440 Not Available [facility] [address], [place], [address], 09/05/2024 19:18:47 09/06/19 25 09/05/2024 CBC W/ AUTOD IFF, COMPL ETE BLOOD COUNT MPV 8.5 fL 7.4 - 10.4 Not Available [facility] [address], [place], [address], 09/05/2024 19:18:47 09/06/19 25 09/05/2024 CBC W/ AUTOD IFF, COMPL ETE BLOOD COUNT neutrophil, percentage 65.1 % Not Available [facility] [address], [place], [address], 09/05/2024 19:18:47 09/06/19 25 09/05/2024 CBC W/ AUTOD IFF, COMPL ETE BLOOD COUNT lymphocyte, percentage 25.6 % Not Available [facility] [address] [place] [address] [address], [place], [address], 09/05/2024 19:18:47 09/06/19 25 09/05/2024 CBC W/ AUTOD IFF, COMPL ETE BLOOD COUNT monocyte, percentage 6.0 % Not Available [facility] [address] [place], [place] [address]y [address], [place], [address], 09/05/2024 19:18:47 09/06/19 25 09/05/2024 CBC W/ AUTOD IFF, COMPL ETE BLOOD COUNT eosinophil, percentage 2.0 % Not Available [facility] [address] [place] [address] [address], [place], [address], 09/05/2024 19:18:47 09/06/19 25 09/05/2024 CBC W/ AUTOD IFF, COMPL ETE BLOOD COUNT basophil, percentage 1.3 % Not Available [facility] [address] [place] [address] [address], [place], [address], 09/05/2024 19:18:47 09/06/19 25 09/05/2024 CBC W/ AUTOD IFF, COMPL ETE BLOOD COUNT neutrophil, absolute 6.5 K/uL 1.5 - 7.5 Not Available [facility] [address] [place], [place] [address]y [address], [place], [address], 09/05/2024 19:18:47 09/06/19 25 09/05/2024 CBC W/ AUTOD IFF, COMPL ETE BLOOD COUNT lymphocyte, absolute 2.6 K/uL 0.8 - 4.0 Not Available [facility] [address] [place], [place] [address], [place], [address], 09/05/2024 19:18:47 09/06/19 25 09/05/2024 CBC W/ AUTOD IFF, COMPL ETE BLOOD COUNT monocyte, absolute 0.6 K/uL 0.1 - 1.0 Not Available [facility] [address], [place], [address], 09/05/2024 19:18:47 09/06/19 25 09/05/2024 CBC W/ AUTOD IFF, COMPL ETE BLOOD COUNT eosinophil, absolute 0.2 K/uL 0.1 - 1.0 Not Available [facility] [address], [place], [address], 09/05/2024 19:18:47 09/06/19 25 09/05/2024 CBC W/ AUTOD IFF, COMPL ETE BLOOD COUNT basophil, absolute 0.1 K/uL 0.0 - 0.2 Not Available [facility] [address], [place], [address], 09/05/2024 19:18:47 09/06/19 25 09/05/2024 VENIP UNCTU RE results Compl ete Not Available [facility] [address] [place], [address], 09/05/2024 16:52:30 09/15/19 25 09/14/2024 , [facility] ardio gram No observ ation record ed. [email or web address] [facility] All Locations, [place], [address], 09/18/2024 21:45:17 Result Notes None recorded. Problems Name Problem SNOMED Code Status Onset Date Resolution Date Notes Provider Name and Address Organization Details Recorded Time Mixed hyperlipidemia 897264823 Active 2024 Dara Tamika, DO [address], [place], [address], [facility], [facility] 5 16:35:41 Elevated blood-pressure reading without diagnosis of hypertension 362050653 Active 2024 Aleida Holt null, [facility], [facility] 5 16:37:49 Hyperlipidemia 66514031 Active 2024 Aleida Holt null, [facility], [facility] 5 16:38:09 Heart murmur 10019755 Active 2024 Aleida Holt null, [facility], [facility] 16:42:21 Aortic valve stenosis 14416560 Active 2024 Dara Tamika, DO [address], [place], [address], [facility], [facility] 21:44:50 Prediabetes 541186259 Active 2024 Dara Tamika, DO [address], [place], [address], [facility], [facility] 5 16:13:01 Benign essential hypertension 5098792 Active 2024 Aleida Holt null, [facility], [facility] 16:17:12 Alkaline phosphatase above reference range 751917710 Active 2024 Aleida Holt null, [facility], [facility] 16:18:52 Problem Notes None recorded. Procedures Surgical History Date Name Laterality Status Provider Name and Address Organization Details Recorded Time 5 G2211 completed Dara Tamika, DO [address], [place], [address], [facility], [facility] 10/06/2024 16:31:20 5 Colonoscopy completed Dara Tamika, DO [address], [place], [address], [facility], [facility] 09/05/2024 16:38:25 5 Vasectomy completed Camille Hollis [facility], [facility] 09/05/2024 15:56:20 Imaging Results None recorded. Procedure Notes None recorded. Medical Equipment None Reported. Allergies No known drug allergies Medications Name Sig Start Date Stop Date Status Note LastModified by Organization Details LastModified Time atorvastatin 20 mg tablet Take 1 tablet every day by oral route. 2024 active Not Available Not Available Not Avai lable losartan 25 mg tablet Take 1 tablet every day by oral route in the morning for 90 days, for BLOOD PRESSURE. 2024 active Not Available Not Available Not Avai lable Vitals Date Recorded Respiratory rate Body weight Oxygen saturation Oxygen saturation in Arterial blood by Pulse oximetry Heart rate Body mass index (BMI) Body height Body temperature Systolic And Diastolic Systolic And Diastolic Systolic And Diastolic Provider Name and Address Organization Details Last Updated DateTime 17 /min 40743.9 8 g 99 % 99 % 61 /min 28.7 kg/m2 185.42 cm 98.4 [degF] 147/90 mm[Hg] 177/100 mm[Hg] 148/86 mm[Hg] Camille Hollis [facility], [facility] 15:54:38 Date Recorded Systolic And Diastolic Provider Name and Address Organization Details Last Updated DateTime 09/05/2024 138/80 mm[Hg] Aleida Holt [facility], [facility] 09/05/2024 16:40:50 Date Recorded Body height Body mass index (BMI) Body weight Heart rate Body temperature Respiratory rate Oxygen saturation Oxygen saturation in Arterial blood by Pulse oximetry Systolic And Diastolic Provider Name and Address Organization Details Last Updated DateTime 185.42 cm 27 kg/m2 67703.4 4 g 62 /min 98.5 [degF] 17 /min 98 % 98 % 151/86 mm[Hg] Camille Hollis [facility], [facility] 15:42:24 Social History Question Answer Notes LastModified by Organizat ion Details LastModified Time Tobacco Smoking Status Never Smoker Camille munoz [facility], [facility] 09/05/2024 15:50:06 Do You Have An Advance Directive? No Information not available 09/05/2024 Is Your Home Air Conditioned? Yes Information not available 09/05/2024 Do You Wear A Helmet When Biking? Yes Information not available 09/05/2024 Is Blood Transfusion Acceptable In An Emergency? Yes Information not available 09/05/2024 What Type Of Diet Are You Following? REGULAR Information not available 09/05/2024 Have There Been Any Changes To Your Family Or Social Situation? Yes Information not available 09/05/2024 Are There Any Guns Present In Your Home? No Information not available 09/05/2024 Which Of Your Hands Is Dominant? Right Information not available 09/05/2024 Where Do You Live? SingleLevelHouse Information not available 09/05/2024 Do You Have A Medical Power Of High Raw Sugar Boiler? No Information not available 09/05/2024 What Is Your Relationship Status? Information not available 09/05/2024 Are You Sexually Active? Yes Information not available 09/05/2024 Do You Have Smoke And Carbon Monoxide Detectors In Your Home? Yes Information not available 09/05/2024 Are You Passively Exposed To Smoke? No Information not available 09/05/2024 Are There Any Smokers In Your House? No Information not available 09/05/2024 Do You Have Any Dietary Restrictions? No Information not available 09/05/2024 Sex: Male Functional Status Question Answer Note LastModified by payever ion Details LastModified Time Do you use any illicit or recreational drugs? No Information not available 09/05/2024 Do you or have you ever used any other forms of tobacco or nicotine? No Information not available 09/05/2024 What is your level of alcohol consumption? Moderate Information not available 09/05/2024 Are you currently employed? No retired Information not available 09/05/2024 Have you been exposed to chemicals or toxins? No Information not available 09/05/2024 Do you have transportation difficulties? Yes Information not available 09/05/2024 Are you able to care for yourself? Yes Information n ot available 09/05/2024 What is your exercise level? Occasional Information not available 09/05/2024 Mental Status None recorded. Family History Nothing Reported. Medical History Condition Response Coronary Artery Disease N Cancer (location) N Other N Gout N Kidney Stones N Measles/Mumps N Arthralgia N Vomiting N Yeast Infection N Sexually Transmitted Disease N Depression N Blood Clots N Wheezing N Pneumonia N Prostate Problems N Parkinson's N Paralysis N Headaches/Migraines N Cardiac Pacemaker/defibrillator N Dizziness N Arthritis N Night Sweats N Artificial Joint N Blood in Stool N Crohn's Disease N HIV/AIDS N Stroke/TIA N Kidney Disease N Hiatal Hernia N High blood pressure N Gallbladder disease N Weight Loss N Blood Thinner Treatment N Alcohol Overuse N Gallstones N Hypogonadism N Nervous Breakdown N Del Angel's Esophagus N Muscle Aches N Urinary Problems N Nausea N Gastritis N Back pain N Rheumatic Fever N Bleeding Disorder N Osteopenia/Osteoporosis N inflammation of vein N Asthma N Ostomies (location) N Seizures N Swelling/Edema N Jaundice N Hepatitis N Cirrhosis N Chicken Pox N Allergies (other than meds) Y Thyroid Disease N Diarrhea N Emphysema/COPD N Lung Disease N Vascular Disease N Rash/Skin Condition N Amputation (location) N Nerve Damage / Neuropathy N Blood in Urine N Sleep disorder/Insomnia N Heart disease / Heart Attack N Shortness of Breath N High Cholesterol Y Colon Problems N Serious Injuries N Dialysis N Leg Cramping N Memory Loss/Alzheimer's N Chronic Cough N Fever/Chills N Congestive heart failure N Falls N Hormone Replacement N Diabetic Eye Disease N Anemia N Chest Pain N Colon Polyps N Hospitalizations (other than operations) N Diabetes N Cardiac Arrhythmias /irregular heart rat e N Heart Murmur N Phlebitis N Anxiety/Stress N Vision Problems N Erectile / Sexual Dysfunction N Epilepsy N Morning Cough N Sleep Apnea N Fainting N GERD/Ulcer N Bronchitis N Past Encounters Encounter ID Performer Location Encounter Start Date Encounter Closed Date Diagnosis/Indication Diagnosis SNOMED-CT Code Diagnosis ICD10 Code Diagnosis Note [id number] DO CAITLIN Beckford [address] [place] [address] 09/05/2024 14:31:11 09/05/2024 17:57:43 Hyperlipidemia 28642679 E78.2 - Patient is currently on atorvastat in for cholestero l management .- Discussed the importance of regular monitoring of lipid levels.- Recommende d fasting labs to check current lipid levels and assess the effectiven ess of atorvastat in therapy.- Patient agreed to have the labs done and will follow up for results. CHRONIC, STABLE, CONTINUE CURRENT MEDCIATION REGIMEN, LISTED ON MEDICATION LIST Endocrine/ metabolic screening 854344908 Z13.228 TFTS AND VIT D WITH NEXT LAB Screening for malignant neoplasm of prostate 249757439 Z12.5 PSA WITH NEXT LAB Elevated blood-pressure reading without diagnosis of hypertension 797102961 R03.0 - Blood pressure was elevated at the initial reading but improved to 138/80 after resting.- Recommende d patient to invest in an Omron blood pressure cuff for home monitoring to track blood pressure trends.- Educated patient on the importance of monitoring blood pressure at home and advised to bring the cuff to the next visit for calibratio n.- Discussed the potential impact of decongesta nts on blood pressure and recommende d Coricidin HBP for congestion relief without raising blood pressure.- Ordered an echocardio gram to evaluate for any valvular issues and to assess the left ventricle for hypertroph y due to potential chronic hypertensi on.- Patient agreed to the plan and will schedule the echocardio gram. ACUTE, STABLE, BP ELEVATED IN OFFICE, BP LOG GIVEN TO PT TO MONITOR BP AT HOME, ADVISED TO NOTIFY OFFICE IF BP REMAINS 140/90 OR HIGHER Heart murmur 30524656 R0 1.1 ACUTE, STABLE, PT STATES HE WAS TOLD APPROX 20 YEARS AGO THAT HE HAD A MURMERQUES TIONABLE TODAY ON EXAM Patient en counter status 625492217 Z13.6 Z71.89 Encounter for screening for cardiovasc ular disorders- Recommende d an echocardio gram to evaluate for any valvular abnormalit ies and to assess the left ventricula r function due to a questionab le heart murmur and elevated blood pressure.- Provided the patient with the contact informatio n to schedule the echocardio gram.- Advised the patient to follow up with fasting labs to assess cardiovasc ular risk factors, including lipid profile and other relevant parameters .- Patient agreed to the plan and will schedule the fasting labs. Other specified counseling - Provided counseling on the importance of regular blood pressure monitoring and the use of an appropriat e blood pressure cuff.- Educated the patient on the use of Coricidin HBP for congestion relief without affecting blood pressure.- Discussed the importance of routine cardiovasc ular screening and the need for an echocardio gram and fasting labs.- Patient understood and agreed with the counseling provided. Hepatitis C screening 41 2752473 Z11.59 HEP C SCREENING DUE [id number] Dara Lundberg DO [facility] [address] [place] [address] 10/06/2024 06:31:31 10/07/2024 08:42:38 Benign essential hypertension 5105002 I10 - Blood pressure readings at home have been consistent ly elevated, with a range from 137/88 to 177/100. - Echocardio gram showed mild aortic valve stenosis, which will be monitored annually. - No symptoms of chest discomfort , shortness of breath, or fluid retention reported. - Prescribed losartan 25 mg once daily in the morning to manage blood pressure. - Advised to monitor blood pressure at home and follow up with primary care physician in [place]. Hyperlipidemia 02121701 E78.2 - LDL cholestero l was elevated at 113, above the target of 80. - Educated the patient on dietary changes to lower LDL, including a plant-base d diet, increased fiber intake, and use of fiber supplement s like Benefiber Clear. - Patient currently on atorvastat in 20 mg daily; advised to switch administra tion to nighttime for better efficacy. - Recommende d follow-up labs in December to recheck cholestero l levels. Alkaline p hosphatase above reference range 272803235 R74.8 - Alkaline phosphatas e level was elevated at 206, above the normal range of 128. - Discussed potential sources of elevated alkaline phosphatas e, including bone, GI tract, and liver. - Patient reported joint pain in knees and shoulders, likely due to arthritis. - Plan to repeat labs in December, including isoenzyme testing to determine the source of elevated alkaline phosphatas e.C/O SHOULDER AND KNEE PAIN Prediabetes 724208172 R7 3.03 - A1c was elevated at 5.9, placing the patient in the prediabeti c range. - Educated the patient on dietary modificati ons including high protein, low carbohydra te diet, and limiting intake of bread, rice, pasta, and potatoes. - Advised to increase consumptio n of lean meats, fish, and vegetables . - Recommende d follow-up labs in December to recheck A1c levels.CHR ONIC, STABLE, REC LIMIT CARB INTAKE. Pain of mu ltiple joints 68437685 M25.50 CHRONIC, UNSTABLE, CHANGE MEDICATION S STATED IN MED LIST Health Concerns Section Related Observation LastModified by Organization Detai ls LastModified Time None Recorded Concern Status LastModified by Organization Details LastModified Time None Recorded Advance Directives Directive N: Payers Insurance Date Sequence Insurance Name Policy Number Policy Up Covered Member ID Up Member ID Guarantor Name 10/06/2024 1 [place] Caleb Toth Familia [id number] Caleb Barbosa 10/06/2024 2 [place] 111 Caleb Familia [id number] Caleb Familia 09/05/2024 1 *SELF PAY* Minesh Barbosa Notes Date Note Type Note Provider Name and Address Organization Details Recorded Time 09/05/2024 text/html Establishing Car e for Chronic ConditionsReported bypatient.Reason for visit:establishing care Diagnosis:Dyslipidemia (ATORVASTATIN 20MG QD); HTN (ELEVATED TODAY) Current status:unknown control Current symptoms/concerns:none stated The patient is a 69-year-old male with a history of hypercholesterolemia, presenting with URI symptoms and elevated blood pressure readings. The patient reports experiencing URI symptoms, including congestion and phlegm, but denies fever or chills. He occasionally takes Delsym for cough, but has not taken it in the past 2 days. He is currently on atorvastatin for hypercholesterolemia, which is well-controlled, and does not require a refill at this time. He denies any history of smoking or thyroid issues. During today's visit, his blood pressure was noted to be elevated, which he states is unusual but has been creeping up a little bit recently. He does not have access to a blood pressure cuff at home and denies consuming excessive caffeine or taking decongestants that could elevate blood pressure. He recalls being told he had high blood pressure approximately 10 years ago, but not on a regular basis. He also mentions being told he had a heart murmur over 20 years ago. The patient is up to date on vaccinations, including pneumonia, COVID-19, and Shingrix. He has a history of a vasectomy and a normal colonoscopy in 2015, with plans for another colonoscopy this year. He denies chest pain, dyspnea, abdominal pain, or leg swelling. Bowel habits are reported as normal. He follows up with his primary care physician for wellness visits and cholesterol checks, typically every 6 months, with the last check around April or May. QUALITY MEASURE QUESTIONNAIRE Are you a diabetic patient No Has the Patient previously received any type of colorectal cancer screener Yes Please confirm which of the following colorectal screeners the Patient has received in the past Colonoscopy Please enter the date you received your last Colonoscopy 12/09/2014 Colonoscopy Result Negative Imported from [employer] on 09/05/2024 Dara Lundberg DO [address], [place], [address], [facility] [place] - [facility], [facility] 09/05/2024 17:43:55 10/06/2024 text/html The patient is a 69-year-old male with a history of hypercholesterolemia, presenting for follow-up on recent lab results. The patient reports bilateral knee and shoulder pain, which he attributes to arthritis. He has had imaging studies performed, which reportedly show no need for surgical intervention at this time. He denies having had an MRI. He has been monitoring his blood pressure at home, with readings ranging from 137/88 to 177/100. He notes a discrepancy between readings taken on his left and right arms, with the right arm consistently showing lower readings (e.g., 120/72, 128/78) compared to the left arm (e.g., 150/79, 151/86). He also [place] which were 144/74 and 144/82. He denies any history of antihypertensive medication use. He also denies chest discomfort, dyspnea, or fluid retention such as ankle swelling or tight rings. He reports taking a vitamin D supplement and atorvastatin 20 mg daily in the morning. He denies using a salt shaker frequently but does eat out occasionally. He has a family history of diabetes, with one sister having type 2 diabetes and a nephew with type 1 diabetes. Recent lab results show an elevated alkaline phosphatase level of 206 U/L (normal <128 U/L). He also has an HbA1c of 5.9%, placing him in the pre-diabetic range. His LDL cholesterol is 113 mg/dL, above the target of 80 mg/dL. Other lab results, including urinalysis, CBC, vitamin D, thyroid function tests, PSA, blood glucose, kidney and liver function tests, and muscle enzyme levels, were within normal limits. He was also screened for hepatitis C, which was negative. A recent echocardiogram showed mild aortic valve stenosis with calcification. He plans to return to [place] next week and will have his medical records transferred to his physician there. He has a follow-up appointment scheduled in December. This visit was conducted via our telehealth video visit service. Provider location: in office Patient location: at home address on file Visit Participants in addition to provider and patient: ALEIDA CORADO Patient has given verbal consent to telehealth visit. Dara Lundberg DO [address], [place], [address], [facility] [place] - [facility], [facility] 10/06/2024 23:49:33
--- OUTSIDE RECORDS SUMMARY | 2025-01-10 17:25 | XMS_ITS | Clinical Summary ---
Author Organization [facility] Address [address] [place] [address] Care Team Providers Care Warehouse Clerk Name Role Phone Julian Mcmahon MD Primary Care Provider [phone] Allergies Active Allergy Reactions Criticality Noted Date [...] mg capsule Take by mouth Activ e [id number]-fvu-DE -lycopen-lutein 300-600-300 mcg tablet Take by mouth [...] with his PCP for referral to a qa automation engineer of PCPs preference for consideration of extended [...] in neurology clinic on an as-needed basis. Encounters Date Type Department Care Team Description 10/17/2024 10:00 AM CDT Office Visit [facility] [address] [place] [address] [address] [place] [address] Kati Mahoney MD History of nonmelanoma skin cancer (Primary Dx); Multiple benign nevi; Luz angioma; Lentigines; Sebaceous hyperplasia of face; Seborrheic keratosis; Actinic keratosis from Last 3 Months Surgical History Surgery Date Site/Laterality Comments VASECTOMY ORAL SURGERY Medical History Medical History Date Comments Skin cancer Stroke (HCC) Venereal disease High cholesterol Family History Medical History Relation Name Comments Lung cancer Brother Alcohol abuse Father Blood Clot Father Heart failure Mother Alzheimer's disease Sister 1 Breast cancer Sister 2 Heart defect Sister 3 Uterine cancer Sister 3 Hypertension Sister 4 No Known Problems Sister 5 Obesity Sister 6 Relation Name Status Comments Brother Father Mother Sister 1 Alive Sister 2 Alive Sister 3 Alive Sister 4 Alive Sister 5 Alive Sister 6 Alive Social History Tobacco Use Types Packs/Day Years Used Date Smoking Tobacco: Never Smokeless Tobacco: Never Personal Safety Answer Date Recorded Getting School Help Needed Not on file 09/04 Sex and Gender Information Value Date Recorded Sex Assigned at Not on file Legal Sex Male 6:13 AM CDT Gender Identity Not on file Sexual Orientation Not on file Obstetrics History Last Filed Vital Signs Vital Sign Reading [...] 02/28/2021 2:19 PM CDT Plan of Treatment Health Maintenance Due Date Last Done Comments Colon Cancer Screening-Colonoscopy 1954 Depression Screening 1954 Fall Risk Assessment 1954 Hepatitis C Screening 1954 Hepatitis B Screening 1972 Pneumococcal vaccine 65+ (1 of 1 - PCV) 2004 Well Visit 65+ 2019 Influenza Vaccine (Season Ended) 2025 04/13/20, 05/10/2018 DTaP/Tdap/Td Vaccine (2 - Td or Tdap) 02/22/2029 Zoster Vaccine Completed 04/04/2019, 01/26/2019 Insurance MEDICARE [facility] MEDICARE [facility] Care Teams Warehouse Clerk Relationship Specialty Start Date End Date Julian Mcmahon MD [address] [place] [address] PCP - General Internal Medicine 09/14/18
[2025-01-10 17:30] VITALS: BP 122/74; PULSE 51; RESP 16; TEMP 36.7; O2SAT 100
--- NOTE | 2025-01-10 19:55 | ECG_ITS ---
Test Date: 2025-01-10 20:32:22 Measurements Intervals [place] Rate: 56 P: 68 MO: 185 QRS: 25 QRSD: 88 T: 54 QT: 407 QTc: 394 Interpretive Statements SINUS BRADYCARDIA OTHERWISE NORMAL ELECTROCARDIOGRAM No previous ECG available for comparison Electronically Signed On 01-11-2025 07:47:20 CDT by Kalpesh Johnson M.D.
--- NOTE | 2025-01-10 20:18 | ED.GENADULT ---
HPI - General Adult General Chief complaint: Extremity Injury, Lower Stated complaint: fall, L hip pain Time Seen by Provider: 01/10/25 19:54 History of Present Illness HPI narrative: 69-year-old male presents emergency department for evaluation for left hip pain. Patient reports he was walking in his garage when he tripped fell and injured his left hip. Patient denies striking his head denies any loss of consciousness. Patient does admit to drinking alcohol but does not drink alcohol daily. Patient has no history of alcohol withdrawal. Patient denies any alcohol consumption today Related Data Home Medications ?Medication ?Instructions ?Recorded ?Confirmed ?Last Taken ?Type cholecalciferol (vitamin D3) 50 50 mcg PO DAILY 10/15/21 12/07/24 Unknown History mcg (2,000 unit) capsule coenzyme Q10 100 mg capsule 100 mg PO DAILY 10/15/21 12/07/24 Unknown History loratadine 10 mg capsule 10 mg PO DAILY 10/15/21 12/07/24 Unknown History obdrbnkcgopu-hpczjaen-aaomjq tablet 1 tablet PO DAILY 10/15/21 12/07/24 Unknown History saw palmetto 450 mg capsule 450 mg PO BID 10/15/21 12/07/24 Unknown History ascorbic acid (vitamin C) 1,000 mg 1 g PO DAILY 06/26/22 12/07/24 Unknown History capsule cranberry extract 650 mg capsule 1,300 mg PO DAILY 06/26/22 12/07/24 Unknown History losartan 25 mg tablet 25 mg PO DAILY 12/07/24 12/07/24 Unknown History Allergies Allergy/AdvReac Type Severity Reaction Status Date / Time desmopressin Allergy Unknown rash Verified 01/10/25 17:30 minocycline Allergy Unknown unknown Verified 01/10/25 17:30 Review of Systems Review of Systems: All systems reviewed & are unremarkable except as noted in HPI and below PMFSH Past Medical History Medical History (Updated 01/10/25 @ 21:55 by Pineda Sterling MD) Hypertension History of basal cell cancer Hyperlipidemia Surgical History Surgical History History of oral surgery H/O vasectomy Family History Family History Grandparent Family history of arthritis Family history of Alzheimer's disease Mother Family history of arthritis Family history of Alzheimer's disease Heart disease Sibling Family history of lung cancer Family history of malignant neoplasm of uterus Family history of malignant neoplasm of breast in first degree relative Diabetes mellitus Father Family history of alcoholism Sibling , cancer No problems noted. Sibling Dementia Social History Social History (Updated 12/07/24 @ 10:40 by Anyi Omer [facility]) Smoking status: Never smoker Second hand tobacco smoke exposure: No Alcohol intake: current Drinks per week: 2 Alcohol use details: Beer Substance use: never Substance use type: does not use Do You Feel Safe in your Home?: Yes Lack of Transportation: No Lack of Food: Never True Current Housing: I Have Housing Concerned About Future Housing: No Difficulty Paying Gas/Electric Bills: No Difficulty Paying for Meds: No Currently Unemployed: No Education: Bachelor's Degree Difficulty w/ Childcare or Family Care: No Living arrangements: with family Occupation/Education: retired Additional occupation/education comments: [employer] Employee Gender identity (if verbalized by the patient): Male Exam Narrative: APPEARANCE: Uncomfortable appearing. HEAD: normocephalic, atraumatic. EYES: PERRLA/EOMI, conjunctivae clear. NOSE: Normal no drainage EARS:TMS clear with good light reflex. THROAT: Pharynx clear, no exudate. NECK: Supple. No adenopathy, no masses. RESPIRATORY: Airway patent, respirations nonlabored. Clear to auscultation bilaterally, no rales, rhonchi, wheezing. CARDIOVASCULAR: Regular rate and rhythm without murmurs rubs or gallops. ABDOMINAL: Soft, nontender, nondistended, normal bowel sounds MUSCULOSKELETAL: Neurovascularly intact for left leg pain at left hip. Limited range of motion of left leg NEURO: Alert. Cranial nerves II through XII intact. Good gait. Good coordination SKIN: Warm, dry. Normal Color Course Vital Signs Vital signs: Vital Signs Temperature 98.0 F 01/10/25 17:30 Pulse Rate 51 L 01/10/25 17:30 Respiratory Rate 01/10/25 17:30 Blood Pressure 122/74 01/10/25 17:30 Pulse Oximetry 100 01/10/25 17:30 Oxygen Delivery Room Air 01/10/25 17:30 Temperature 98.0 F 01/10/25 17:30 Pulse Rate 55 L 01/10/25 20:22 Respiratory Rate 16 01/10/25 20:22 Blood Pressure 176/95 H 01/10/25 20:22 Pulse Oximetry 100 01/10/25 20:22 Oxygen Delivery Room Air 01/10/25 20:22 Medical Decision Making MDM Narrative Medical decision making narrative: 69-year-old male presents emergency department for evaluation for left hip pain. Patient was walking in his garage and tripped and landed on his left hip. Patient denies striking his head denies loss of consciousness. Patient does have a nondisplaced fracture of the left femoral neck. Orthopedics was consulted. Case discussed with hospitalist patient was accepted for admission. Differential Diagnosis Differential Diagnosis: Hip fracture, hip dislocation, pelvic fracture Vital Signs Vital Signs: Vital Signs Temperature 98.0 F 01/10/25 17:30 Pulse Rate 51 L 01/10/25 17:30 Respiratory Rate 16 01/10/25 17:30 Blood Pressure 122/74 01/10/25 17:30 Pulse Oximetry 100 01/10/25 17:30 Oxygen Delivery Room Air 01/10/25 17:30 Temperature 98.0 F 01/10/25 17:30 Pulse Rate 55 L 01/10/25 20:22 Respiratory Rate 16 01/10/25 20:22 Blood Pressure 176/95 H 01/10/25 20:22 Pulse Oximetry 100 01/10/25 20:22 Oxygen Delivery Room Air 01/10/25 20:22 Lab Data Lab results reviewed: Yes I reviewed the patient's lab results. 01/10/25 20:25 01/10/25 20:25 Labs: Lab Results 01/10/25 Range/Units 20:25 WBC 8.2 (4.5-10.0) K/mm3 RBC 5.21 (4.6-6.20) M/mm3 Hgb 16.0 (14.0-18.0) g/dL Hct 47.7 (42.0-52.0) % MCV 91.6 (80-100) fl MCH 30.7 (26-34) pg MCHC 33.5 (32-36) g/dl RDW 12.9 (11.5-14.5) % Plt Count 187 (150-375) k/mm3 MPV 10.1 (7.4-10.4) fl Immature Gran % (Auto) 0.4 (0-0.5) % Neut % (Auto) 64.5 (45.5-73.1) % Lymph % (Auto) 25.9 (18.3-44.2) % [place] % (Auto) 5.8 (2.6-8.5) % Eos % (Auto) 2.8 (0-4.4) % Baso % (Auto) 0.6 (0.2-1.2) % Lymph # (Auto) 2.12 (0.9-3.2) K/mm3 [place] # (Auto) 0.5 (0.1-0.6) K/mm3 Eos # (Auto) 0.2 (0-0.3) K/mm3 Baso # (Auto) 0.1 (0.0-0.1) K/mm3 Abs Immat Gran (auto) 0.03 (0.00-0.031) K/mm3 Absolute Neuts (auto) 5.3 (1.3-6.7) K/mm3 Absolute Nucleated RBC 0.000 (0.0-0.012) K/mm3 Nucleated RBC % 0.0 (0.0-0.2) % PT 12.8 (11.1-14.7) Seconds INR 1.0 APTT 23.0 (22.3-36.8) Seconds Sodium 136 L (137-145) mmol/L Potassium 4.6 (3.4-5.0) mmol/L Chloride 103 (98-107) mmol/L Carbon Dioxide 24 (22-30) mmol/L Anion Gap 9 (4-12) mmol/L BUN 19 (9-20) mg/dL Creatinine 0.94 (0.7-1.3) mg/dL Estim Creat Clear Calc 75 ml/min Estimated GFR > 60 (59 - ) Glucose 106 (65-110) mg/dL Calcium 9.6 (8.4-10.2) mg/dL Total Bilirubin 0.7 (0.2-1.3) mg/dL AST 34 (17-59) U/L ALT 32 (6-50) U/L Alkaline Phosphatase 130 H (38-126) U/L Total Protein 7.4 (6.3-8.2) g/dL Albumin 4.3 (3.5-5.1) g/dL Imaging Data Radiologist's impression: Impressions Hip/Pelvis X-Ray 01/10/25 19:46 IMPRESSION: Fracture of the left femoral neck. Chest X-Ray 01/10/25 19:53 IMPRESSION: No acute cardiopulmonary pathology. Hip X-Ray 01/10/25 21:03 IMPRESSION: As above. Hip CT 01/10/25 21:07 IMPRESSION: Impacted fracture of the left femoral neck. ECG Data EKG #1: EKG Interpretation: bradycardia, sinus rhythm, no ectopy, no ST changes, normal QRS, normal QT and NL axis Discharge Plan Discharge Clinical Impression: Closed fracture of neck of left femur Patient Disposition: Still a Patient Condition: Stable Patient Language: [place] Island[place] Prescriptions: No Action loratadine 10 mg capsule 10 mg PO DAILY arucgradtksj-cozjqnwu-gdetwf Tablet 1 tablet PO DAILY coenzyme Q10 100 mg capsule 100 mg PO DAILY cholecalciferol (vitamin D3) 50 mcg (2,000 unit) capsule 50 mcg PO DAILY saw palmetto 450 mg capsule 450 mg PO BID Rx Instructions: give with food (meal/snack) ascorbic acid (vitamin C) 1,000 mg capsule 1 g PO DAILY cranberry extract 650 mg capsule 1,300 mg PO DAILY Rx Instructions: administer with a meal losartan 25 mg tablet 25 mg PO DAILY aspirin 325 mg tablet 325 mg PO DAILY Qty: 90 4RF atorvastatin 20 mg tablet 20 mg PO DAILY Qty: 90 1RF Follow-up/Referrals: Valerie Johnson NP [Primary Care Provider] -
--- OUTSIDE RECORDS SUMMARY | 2025-01-10 20:18 | XMS_ITS | Clinical Summary ---
Author Organization [facility] Address [address] [place] [address] Care Team Providers Care Ampoule Washing Machine Operator Name Role Phone Unavailable Primary Care [...]
--- OUTSIDE RECORDS SUMMARY | 2025-01-10 20:18 | XMS_ITS | Referral Summary ---
Author Organization [facility] Address [address] [place] [id number] Care Team Providers Care Brush Sander Name Role Phone Julian Mcmahon MD Primary Care Provider [phone] Encounters Date Type Department Care Team Description 10/17/2024 10:00 AM CDT Office Visit [facility] Dermatology [address] [place] [address] [address] [place] [address] Kati Mahoney MD History of nonmelanoma [...] mg capsule Take by mouth Activ e jrodnciu-qeh-HO -lycopen-lutein 300-600-300 mcg tablet Take by mouth [...] with his PCP for referral to a manager assisted living of PCPs preference for consideration of extended [...] of Treatment Not on file Insurance [place] [employer] [place] [employer] [place] Care Teams Brush Sander Relationship Specialty Start Date End Date Julian Mcmahon MD [address] [place] [address] PCP - General Internal Medicine 09/14/18
--- OUTSIDE RECORDS SUMMARY | 2025-01-10 20:18 | XMS_ITS | Clinical Summary ---
Author Organization [facility] Address [address] [place] [id number] Care Team Providers Care Admission Discharge Rn Name Role Phone Julian Mcmahon MD Primary Care Provider [phone] Allergies Active Allergy Reactions Criticality Noted Date [...] mg capsule Take by mouth Activ e nomwvjnk-xwe-CG -lycopen-lutein 300-600-300 mcg tablet Take by mouth [...] with his PCP for referral to a community pharmacist of PCPs preference for consideration of extended [...] 10/17/2024 10:00 AM CDT Office Visit [facility] Dermatology [address] [place] [address] [address] [place] [address] Kati Mahoney [...] Zoster Vaccine Completed 04/04/2019, 01/26/2019 Insurance MEDICARE [facility] MEDICARE [facility] Care Teams Admission Discharge Rn Relationship Specialty Start Date End Date Julian Mcmahon MD [address] [place] [address] PCP - General Internal Medicine 09/14/18
[2025-01-10 20:22] VITALS: BP 176/95; PULSE 55; RESP 16; O2SAT 100
[2025-01-10 20:35] LABS: Hematocrit 47.7 % (42.0-52.0); Hemoglobin 16.0 g/dL (14.0-18.0); Immature Granulocyte Percent A 0.4 % (0-0.5); Lymphocytes Absolute Auto 2.12 K/mm3 (0.9-3.2); Mean Corpuscular HGB Conc 33.5 g/dl (32-36); Mean Corpuscular Hemoglobin 30.7 pg (26-34); Mean Corpuscular Volume 91.6 fl (80-100); Nucleated Red Blood Cells Absolute Auto 0.000 K/mm3 (0.0-0.012); Nucleated Red Blood Cells Perc 0.0 % (0.0-0.2); Platelet Count Result 187 k/mm3 (150-375); Red Blood Count 5.21 M/mm3 (4.6-6.20); White Blood Count 8.2 K/mm3 (4.5-10.0)
[2025-01-10] MEDS: HYDROmorphone HCL INJ (*CRX) 2 MG/ML VIAL 0.5 MG IV PUSH ×2 (20:45→22:51)
[2025-01-10 20:46] LABS: Alanine Aminotransferase 32 U/L (6-50); Albumin Level 4.3 g/dL (3.5-5.1); Alkaline Phosphatase 130 U/L (38-126); Anion Gap 9 mmol/L (4-12); Aspartate Amino Transferase 34 U/L (17-59); Bilirubin,Total 0.7 mg/dL (0.2-1.3); Blood Urea Nitrogen 19 mg/dL (9-20); Calcium 9.6 mg/dL (8.4-10.2); Carbon Dioxide 24 mmol/L (22-30); Chloride 103 mmol/L (98-107); Estimated CRCL calculation 75 ml/min; Estimated Glomerular Filt Rate > 60; Glucose 106 mg/dL (65-110); Potassium 4.6 mmol/L (3.4-5.0); Sodium 136 mmol/L (137-145); Total Protein 7.4 g/dL (6.3-8.2)
[2025-01-10] MEDS: CYCLOBENZAPRINE HCL 10 MG TABLET PO (20:46)
[2025-01-10 20:48] LABS: INR 1.0; Partial Thromboplastin Time 23.0 Seconds (22.3-36.8); Prothrombin Time 12.8 Seconds (11.1-14.7)
[2025-01-10] MEDS: LACTATED RINGERS 1,000 ML 125 ML IV CONT (22:11)
[2025-01-10 22:51] VITALS: BP 165/98; PULSE 52; RESP 14; O2SAT 100
[2025-01-10 23:29] VITALS: BP 165/98; PULSE 52; RESP 14; O2SAT 100
[2025-01-10 23:44] VITALS: BMI 27.0; BMI 28.5
--- NOTE | 2025-01-10 23:44 | ADMGEN ---
This patient, Caleb Barbosa, was admitted to [facility] Surg Room 328-01. Patient/family oriented to hospital policies and general routines including ID bracelet, bed and alarms, visiting hours, pain management, procedures, bathroom and other care routines, personal items, smoking policy, room service/diet, and visiting hours. Information on how to activate the Rapid Response Team has been discussed. Patient/Family are encouraged to report perceived risks to care and to ask questions if they do not understand what they are told or what they should do.
[2025-01-11] VITALS: BP 134/66; PULSE 61; RESP 18; TEMP 36.4; O2SAT 98
[2025-01-11 04:30] VITALS: BP 153/65; PULSE 60; RESP 20; TEMP 36.2; O2SAT 97
[2025-01-11] MEDS: HYDROmorphone HCL INJ (*CRX) 2 MG/ML VIAL 0.5 MG IV PUSH ×4 (06:02→23:50)
[2025-01-11] MEDS: LACTATED RINGERS 1,000 ML 125 ML IV CONT (06:03)
[2025-01-11 10:43] VITALS: O2SAT 96
[2025-01-11 13:49] VITALS: BP 149/65; PULSE 55; RESP 20; TEMP 36.4; O2SAT 100
--- NOTE | 2025-01-11 16:02 | P.HP_ITS ---
H&P: HPI History of Present Illness Date/Time: 01/11/25 16:02 Chief Complaint: left hip pain after a fall Narrative: 69 yo male with PMH of HTN, HLD who presented to the ER on account of left hip pain following a fall. Patient noted he was in his usual state of health until about 4 pm yesterday when he tripped on a box and fell. Immedially noted left hip pain which caused him to present to the ER for proper eval and care. Denies any chest pain, SOB, palpitation , lightheadedness and focal deficits Er eval notable for BP 122/74, labs unremarkable. Xray hip positive for Left femoral neck fracture. Ortho was consulted prior to admission Review of Systems Review of Systems: All other systems were reviewed and negative except as noted in the HPI above [facility] Past Medical History Medical History (Updated 01/10/25 @ 21:55 by Pineda Sterling MD) Hypertension History of basal cell cancer Hyperlipidemia Surgical History Surgical History History of oral surgery H/O vasectomy Family History Family History (Updated 01/11/25 @ 00:21 by Meghan Zaragoza RN) Grandparent Family history of arthritis Family history of Alzheimer's disease Mother Family history of arthritis Heart disease Family history of Alzheimer's disease Sibling Diabetes mellitus Family history of lung cancer Family history of malignant neoplasm of breast in first degree relative Family history of malignant neoplasm of uterus Heart disease Father Family history of alcoholism Sibling , cancer Heart disease Sibling Dementia Heart disease Social History Social History (Updated 12/07/24 @ 10:40 by Anyi Omer CMA) Smoking status: Never smoker Second hand tobacco smoke exposure: No Alcohol intake: current Drinks per week: 2 Alcohol use details: Beer Substance use: never Substance use type: does not use Do You Feel Safe in your Home?: Yes Lack of Transportation: No Lack of Food: Never True Current Housing: I Have Housing Concerned About Future Housing: No Difficulty Paying Gas/Electric Bills: No Difficulty Paying for Meds: No Currently Unemployed: No Education: Bachelor's Degree Difficulty w/ Childcare or Family Care: No Living arrangements: with family Occupation/Education: retired Additional occupation/education 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: [employer]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 Gender identity (if verbalized by the patient): Male Spiritual care concerns: No Meds Home Medications and Allergies Home Medications ?Medication ?Instructions ?Recorded ?Confirmed ?Type aspirin 325 mg tablet 325 mg PO DAILY #90 tabs 11/01/20 01/10/25 Rx cholecalciferol (vitamin D3) 50 50 mcg PO DAILY 10/15/21 01/10/25 History mcg (2,000 unit) capsule coenzyme Q10 100 mg capsule 100 mg PO DAILY 10/15/21 01/10/25 History loratadine 10 mg capsule 10 mg PO DAILY 10/15/21 01/10/25 History avgbdgdfvdis-eokwtitx-cevtko tablet 1 tablet PO DAILY 10/15/21 01/10/25 History saw palmetto 450 mg capsule 450 mg PO DAILY 10/15/21 01/10/25 History ascorbic acid (vitamin C) 1,000 mg 1 g PO DAILY 06/26/22 01/10/25 History capsule cranberry extract 650 mg capsule 650 mg PO DAILY 06/26/22 01/10/25 History losartan 25 mg tablet 25 mg PO DAILY 12/07/24 01/10/25 History atorvastatin 20 mg tablet 20 mg PO HS 01/10/25 01/10/25 History mjifhpbx-zy-qxuyb 300 mcg-K 60 1 tablet PO DAILY 01/10/25 01/10/25 History mcg-lycop 600 mcg-lutein 300 mcg tablet (Century Men 50 Plus) naproxen sodium 220 mg tablet 220 mg PO DAILY 01/10/25 01/10/25 History (Aleve) Allergies Allergy/AdvReac Type Severity Reaction Status Date / Time desmopressin Allergy Unknown rash Verified 01/10/25 17:30 minocycline Allergy Unknown unknown Verified 01/10/25 17:30 Vital Signs Vital Signs - 24 hr 01/10/25 17:30 01/10/25 20:22 01/10/25 22:51 Temperature 98.0 F Pulse Rate 51 L 55 L 52 L Respiratory Rate 16 16 14 Blood Pressure 122/74 176/95 H 165/98 H Pulse Oximetry 100 100 100 Oxygen Delivery Room Air Room Air 01/10/25 23:29 01/11/25 00:00 01/11/25 00:36 Temperature 97.5 F L Pulse Rate 52 L 61 Respiratory Rate 14 18 Blood Pressure 165/98 H 134/66 Pulse Oximetry 100 98 Oxygen Delivery Room Air 01/11/25 04:30 01/11/25 08:00 01/11/25 10:43 Temperature 97.2 F L Pulse Rate 60 Respiratory Rate 20 Blood Pressure 153/65 H Pulse Oximetry 97 96 Oxygen Delivery Room Air Room Air 01/11/25 13:49 Temperature 97.5 F L Pulse Rate 55 L Respiratory Rate 20 Blood Pressure 149/65 H Pulse Oximetry 100 Oxygen Delivery Exam Narrative: General: alert and comfortable Eyes: EOMI, PERRLA ENNT External ears normal, Neck is supple, no masses, Respiratory systems: Clear to auscultation Cardiovascular S1, S2, normal rhythm, no murmur, rub, or gallop; no thrill or palpable murmurs on palpation. Gastrointestinal: soft, non-tender, and non-distended abdomen with no masses; BS present Skin: no rash, lesions, ulcerations, subcutaneous nodules or induration Musculoskeletal: LLE pain precluded exam Neurologic: Alert and oriented x3, non focal Mental Status Exam: normal affect H&P: Results Labs Labs: Short CBC 01/10/25 Range/Units 20:25 WBC 8.2 (4.5-10.0) K/mm3 Hgb 16.0 (14.0-18.0) g/dL Hct 47.7 (42.0-52.0) % Plt Count 187 (150-375) k/mm3 BMP 01/10/25 20:25 Sodium 136 L Potassium 4.6 Chloride 103 Carbon Dioxide 24 BUN 19 Creatinine 0.94 Glucose 106 Calcium 9.6 Liver Function 01/10/25 Range/Units 20:25 Total Bilirubin 0.7 (0.2-1.3) mg/dL AST 34 (17-59) U/L ALT 32 (6-50) U/L Alkaline Phosphatase 130 H (38-126) U/L Albumin 4.3 (3.5-5.1) g/dL Assessment and Plan Assessment and plan (1) Closed fracture of neck of left femur: Code(s): S72.002A - Fracture of unspecified part of neck of left femur, initial encounter for closed fracture Status: Acute Plan Left femoral neck fracture CT hip reviewed Patient had mechanical fall Continue PRN IV morphine Ortho following HTN continue home Losartan HLD continue Statin DVT prophylaxis on Sq lovenox Hospitalist [facility] Advance Care Plan I have confirmed that the patient's Advanced Care Plan is present, code status is documented, or surrogate decision maker is listed in patient medical record.: Yes Medication Reconciliation I have utilized all available resources to obtain, update and review the patients current medications (includes all prescriptions, OTC, herbals, cannabis, and nutritional supplements).: Yes
[2025-01-11] MEDS: LOSARTAN POTASSIUM 25 MG TABLET PO (16:48)
[2025-01-11] MEDS: ATORVASTATIN 20 MG TABLET PO (20:40)
[2025-01-11 21:42] VITALS: BP 151/71; PULSE 59; RESP 20; TEMP 37.1; O2SAT 96
[2025-01-12] VITALS (12 sets, daily range): BP systolic 124–155; BP diastolic 65–80; PULSE 53–63; RESP 12–24; TEMP 35.5–36.9; O2SAT 94–100
[2025-01-12 05:56] LABS: Hematocrit 45.9 % (42.0-52.0); Hemoglobin 15.3 g/dL (14.0-18.0); Immature Granulocyte Percent A 0.3 % (0-0.5); Lymphocytes Absolute Auto 2.32 K/mm3 (0.9-3.2); Mean Corpuscular HGB Conc 33.3 g/dl (32-36); Mean Corpuscular Hemoglobin 30.8 pg (26-34); Mean Corpuscular Volume 92.4 fl (80-100); Nucleated Red Blood Cells Absolute Auto 0.000 K/mm3 (0.0-0.012); Nucleated Red Blood Cells Perc 0.0 % (0.0-0.2); Platelet Count Result 158 k/mm3 (150-375); Red Blood Count 4.97 M/mm3 (4.6-6.20); White Blood Count 9.9 K/mm3 (4.5-10.0)
[2025-01-12 06:03] LABS: Sodium 131 mmol/L (137-145)
[2025-01-12 06:04] LABS: Alanine Aminotransferase 24 U/L (6-50); Albumin Level 3.9 g/dL (3.5-5.1); Alkaline Phosphatase 105 U/L (38-126); Anion Gap 6 mmol/L (4-12); Aspartate Amino Transferase 24 U/L (17-59); Bilirubin,Total 0.7 mg/dL (0.2-1.3); Blood Urea Nitrogen 12 mg/dL (9-20); Calcium 8.8 mg/dL (8.4-10.2); Carbon Dioxide 25 mmol/L (22-30); Chloride 100 mmol/L (98-107); Estimated CRCL calculation 90 ml/min; Estimated Glomerular Filt Rate > 60; Glucose 138 mg/dL (65-110); Magnesium 1.7 mg/dL (1.6-2.3); Potassium 4.1 mmol/L (3.4-5.0); Total Protein 6.7 g/dL (6.3-8.2)
--- NOTE | 2025-01-12 07:06 | PM.CNOR ---
Assessment and Plan Assessment and plan (1) Closed fracture of neck of left femur: Qualifiers: Encounter type: initial encounter Qualified Code(s): S72.002A - Fracture of unspecified part of neck of left femur, initial encounter for closed fracture Code(s): S72.002A - Fracture of unspecified part of neck of left femur, initial encounter for closed fracture Status: Acute Plan This is a 69-year-old otherwise healthy gentleman with a minimally displaced Left Hip femoral neck fracture. My recommendation is for a Left Hip percutaneous screw fixation of his femoral neck fracture. He understands the risks associated with this but also the significant benefit of having his akhiok Hip and not an artificial Hip. The risks still include infection, neurovascular injury, DVT, avascular necrosis, nonunion or malunion of the fracture. He understands that he will be toe-touch weight-bearing for six weeks with the low probability of avascular necrosis or nonunion. He is willing to proceed. The patient was planning on a road trip to the [place] in the middle of February. He's not sure if he still wants to do this, and I informed him that he may be able to do this. However, he will need to be with crutches or a walker at the time. He has one son who is currently in [place] as an Underground Mine Machinery Mechanic. He is Retired . He spent 30 years in [facility] in [place] and has recently moved over the past seven years to [place], [place]. History of Present Illness HPI Consult date: 01/11/25 Requesting physician: Queenie Martinez MD Chief complaint: Left femoral neck fracture Narrative: The patient is a 69-year-old male who presented with a Left Hip minimally displaced femoral neck fracture after a fall in his garage. He was seen in the emergency department and I was consulted for his pediatric care. The patient tells me that he was in his garage doing some work and tripped over a crate and landed onto his Left Hip. Prior to that, he had no issues with his Left Hip. He reports pain nowhere else, specifically no head trauma, no Wrist pain, no Knee pain, just Left Hip groin pain. He was unable to ambulate and was brought to the emergency room for evaluation.The patient is a 69-year-old male who presented with a Left Hip minimally displaced femoral neck fracture after a fall in his garage. He was seen in the emergency department and I was consulted for his orthopedic care. - patient informs me that this is his first time spending a night in a hospital. [facility] Past Medical History Medical History (Updated 01/12/25 @ 07:16 by Virgilio Dempsey MD) Hypertension History of basal cell cancer Hyperlipidemia Surgical History Surgical History History of oral surgery H/O vasectomy Family History Family History (Updated 01/11/25 @ 00:21 by Meghan Zaragoza RN) Grandparent Family history of arthritis Family history of Alzheimer's disease Mother Family history of arthritis Heart disease Family history of Alzheimer's disease Sibling Diabetes mellitus Family history of lung cancer Family history of malignant neoplasm of breast in first degree relative Family history of malignant neoplasm of uterus Heart disease Father Family history of alcoholism Sibling , cancer Heart disease Sibling Dementia Heart disease Social History Social History (Updated 12/07/24 @ 10:40 by Anyi Omer CMA) Smoking status: Never smoker Second hand tobacco smoke exposure: No Alcohol intake: current Drinks per week: 2 Alcohol use details: Beer Substance use: never Substance use type: does not use Do You Feel Safe in your Home?: Yes Lack of Transportation: No Lack of Food: Never True Current Housing: I Have Housing Concerned About Future Housing: No Difficulty Paying Gas/Electric Bills: No Difficulty Paying for Meds: No Currently Unemployed: No Education: Bachelor's Degree Difficulty w/ Childcare or Family Care: No Living arrangements: with family Occupation/Education: retired Additional occupation/education comments: [employer] Employee Gender identity (if verbalized by the patient): Male Spiritual care concerns: No Meds Home Medications and Allergies Home Medications ?Medication ?Instructions ?Recorded ?Confirmed ?Type aspirin 325 mg tablet 325 mg PO DAILY #90 tabs 11/01/20 01/10/25 Rx cholecalciferol (vitamin D3) 50 50 mcg PO DAILY 10/15/21 01/10/25 History mcg (2,000 unit) capsule coenzyme Q10 100 mg capsule 100 mg PO DAILY 10/15/21 01/10/25 History loratadine 10 mg capsule 10 mg PO DAILY 10/15/21 01/10/25 History kvwrpmnkxxrp-ggtwxasg-jhhnqg tablet 1 tablet PO DAILY 10/15/21 01/10/25 History saw palmetto 450 mg capsule 450 mg PO DAILY 10/15/21 01/10/25 History ascorbic acid (vitamin C) 1,000 mg 1 g PO DAILY 06/26/22 01/10/25 History capsule cranberry extract 650 mg capsule 650 mg PO DAILY 06/26/22 01/10/25 History losartan 25 mg tablet 25 mg PO DAILY 12/07/24 01/10/25 History atorvastatin 20 mg tablet 20 mg PO HS 01/10/25 01/10/25 History kirdnlpa-bc-yzezg 300 mcg-K 60 1 tablet PO DAILY 01/10/25 01/10/25 History mcg-lycop 600 mcg-lutein 300 mcg tablet (Century Men 50 Plus) naproxen sodium 220 mg tablet 220 mg PO DAILY 01/10/25 01/10/25 History (Aleve) Allergies Allergy/AdvReac Type Severity Reaction Status Date / Time desmopressin Allergy Unknown rash Verified 01/10/25 17:30 minocycline Allergy Unknown unknown Verified 01/10/25 17:30 Vital Signs Vital Signs - 24 hr 01/11/25 08:00 01/11/25 10:43 01/11/25 13:49 Temperature 36.4 C L Pulse Rate 55 L Respiratory Rate 20 Blood Pressure 149/65 H Pulse Oximetry 96 100 Oxygen Delivery Room Air Room Air 01/11/25 20:27 01/11/25 21:42 01/12/25 06:00 Temperature 37.1 C 36.8 C Pulse Rate 59 L 57 L Respiratory Rate 20 16 Blood Pressure 151/71 H 130/70 Pulse Oximetry 96 97 Oxygen Delivery Room Air Exam Narrative: Examine the Patient's Left Lower Extremity, shows moderate amount of groin pain with log rolling of the Hip. He has no swelling, tenderness, or deformity of the Knee or of the Ankle on either side. Bilateral Upper Extremities are unremarkable as far as swelling, tenderness, or deformity of the Elbows or Wrists or Hands. Results Labs 01/12/25 05:48 01/12/25 05:48 Labs: Abnormal lab results 01/12/25 Range/Units 05:48 [place] # (Auto) 0.8 H (0.1-0.6) K/mm3 Eos # (Auto) 0.4 H (0-0.3) K/mm3 Sodium 131 L (137-145) mmol/L Glucose 138 H (65-110) mg/dL H & H 01/10/25 01/12/25 Range/Units 20:25 05:48 Hgb 16.0 15.3 (14.0-18.0) g/dL Hct 47.7 45.9 (42.0-52.0) % Coagulation 01/10/25 Range/Units 20:25 INR 1.0 All other labs normal.
[2025-01-12] MEDS: HYDROmorphone HCL INJ (*CRX) 2 MG/ML VIAL 0.5 MG IV PUSH (07:29)
[2025-01-12] MEDS: LACTATED RINGERS 1,000 ML 30 ML IV CONT (09:10)
--- NOTE | 2025-01-12 09:21 | PC.NURSE ---
Patient off of unit to surgery
--- NOTE | 2025-01-12 10:05 | P.PNAN_ITS ---
Anes - Initial Pre Proc Eval Procedure: Operation Date: 01/12/25 10:30 Proposed Procedures p Left Hip Percutaneous Screw Fixation - Virgilio Dempsey MD Date/Time: 01/12/25 10:05 Surgeon: Queenie Martinez MD Pre Op Diagnosis: Left femoral neck fracture Patient Data Age: 69 Gender: M Height: 1.88 m Weight: 95.5 kg Last Vital Signs Temp 98.5 F 01/12/25 09:05 Pulse 56 L 01/12/25 09:05 Resp 16 01/12/25 09:05 BP 124/68 01/12/25 09:05 Pulse Ox 98 01/12/25 09:05 O2 Del Method Room Air 01/12/25 08:00 Allergies Allergy/AdvReac Type Severity Reaction Status Date / Time desmopressin Allergy Unknown rash Verified 01/12/25 09:28 minocycline Allergy Unknown unknown Verified 01/12/25 09:28 Home Medications ?Medication ?Instructions ?Recorded ?Confirmed ?Type aspirin 325 mg tablet 325 mg PO DAILY #90 tabs 11/01/20 01/10/25 Rx cholecalciferol (vitamin D3) 50 50 mcg PO DAILY 10/15/21 01/10/25 History mcg (2,000 unit) capsule coenzyme Q10 100 mg capsule 100 mg PO DAILY 10/15/21 01/10/25 History loratadine 10 mg capsule 10 mg PO DAILY 10/15/21 01/10/25 History gzwroilmroqj-cfbehetl-jgvsts tablet 1 tablet PO DAILY 10/15/21 01/10/25 History saw palmetto 450 mg capsule 450 mg PO DAILY 10/15/21 01/10/25 History ascorbic acid (vitamin C) 1,000 mg 1 g PO DAILY 06/26/22 01/10/25 History capsule cranberry extract 650 mg capsule 650 mg PO DAILY 06/26/22 01/10/25 History losartan 25 mg tablet 25 mg PO DAILY 12/07/24 01/10/25 History atorvastatin 20 mg tablet 20 mg PO HS 01/10/25 01/10/25 History jnzsvwax-gk-ypvof 300 mcg-K 60 1 tablet PO DAILY 01/10/25 01/10/25 History mcg-lycop 600 mcg-lutein 300 mcg tablet (Century Men 50 Plus) naproxen sodium 220 mg tablet 220 mg PO DAILY 01/10/25 01/10/25 History (Aleve) Laboratory Tests 01/12/25 05:48 WBC 9.9 K/mm3 (4.5-10.0) RBC 4.97 M/mm3 (4.6-6.20) Hgb 15.3 g/dL (14.0-18.0) Hct 45.9 % (42.0-52.0) MCV 92.4 fl (80-100) MCH 30.8 pg (26-34) MCHC 33.3 g/dl (32-36) RDW 12.8 % (11.5-14.5) Plt Count 158 k/mm3 (150-375) MPV 9.9 fl (7.4-10.4) Immature Gran % (Auto) 0.3 % (0-0.5) Neut % (Auto) 63.7 % (45.5-73.1) Lymph % (Auto) 23.5 % (18.3-44.2) [place] % (Auto) 7.9 % (2.6-8.5) Eos % (Auto) 4.2 % (0-4.4) Baso % (Auto) 0.4 % (0.2-1.2) Lymph # (Auto) 2.32 K/mm3 (0.9-3.2) [place] # (Auto) 0.8 H K/mm3 (0.1-0.6) Eos # (Auto) 0.4 H K/mm3 (0-0.3) Baso # (Auto) 0.0 K/mm3 (0.0-0.1) Abs Immat Gran (auto) 0.03 K/mm3 (0.00-0.031) Absolute Neuts (auto) 6.3 K/mm3 (1.3-6.7) Absolute Nucleated RBC 0.000 K/mm3 (0.0-0.012) Nucleated RBC % 0.0 % (0.0-0.2) Sodium 131 L mmol/L (137-145) Potassium 4.1 mmol/L (3.4-5.0) Chloride 100 mmol/L (98-107) Carbon Dioxide 25 mmol/L (22-30) Anion Gap 6 mmol/L (4-12) BUN 12 D mg/dL (9-20) Creatinine 0.77 mg/dL (0.7-1.3) Estim Creat Clear Calc 90 ml/min Estimated GFR > 60 (59 - ) Glucose 138 H mg/dL (65-110) Calcium 8.8 mg/dL (8.4-10.2) Magnesium 1.7 mg/dL (1.6-2.3) Total Bilirubin 0.7 mg/dL (0.2-1.3) AST 24 U/L (17-59) ALT 24 U/L (6-50) Alkaline Phosphatase 105 U/L (38-126) Total Protein 6.7 g/dL (6.3-8.2) Albumin 3.9 g/dL (3.5-5.1) Patient hx anesthesia problems: none Family hx anesthesia problems: none Results Review: All pre-operative results and documents have been reviewed as part of the pre- operative evaluation. [facility] Past Medical History Medical History Hypertension History of basal cell cancer Hyperlipidemia Surgical History Surgical History History of oral surgery H/O vasectomy Family History Family History Grandparent Family history of arthritis Family history of Alzheimer's disease Mother Family history of arthritis Heart disease Family history of Alzheimer's disease Sibling Diabetes mellitus Family history of lung cancer Family history of malignant neoplasm of breast in first degree relative Family history of malignant neoplasm of uterus Heart disease Father Family history of alcoholism Sibling , cancer Heart disease Sibling Dementia Heart disease Social History Social History Smoking status: Never smoker Second hand tobacco smoke exposure: No Alcohol intake: current Drinks per week: 2 Alcohol use details: Beer Substance use: never Substance use type: does not use Do You Feel Safe in your Home?: Yes Lack of Transportation: No Lack of Food: Never True Current Housing: I Have Housing Concerned About Future Housing: No Difficulty Paying Gas/Electric Bills: No Difficulty Paying for Meds: No Currently Unemployed: No Education: Bachelor's Degree Difficulty w/ Childcare or Family Care: No Living arrangements: with family Occupation/Education: retired Additional occupation/education comments: [employer] Employee Gender identity (if verbalized by the patient): Male Spiritual care concerns: No Anes - Eval Final PreProcedure Day of Procedure 01/12/25 10:05 Patient weight: overweight Lungs: normal air movement Airway: Mallampati scale class II and special considerations (L upper incisor prev capped. ) Neurological: alert and oriented Last oral intake: >/= 8 hours ASA classification: II Emergent: no Anesthetic plan: proceed Anesthesia type and monitoring: general LMA and standard monitoring Results Review: All pre-operative results and documents have been reviewed as part of the pre- operative evaluation. HTN, hyperlipidemia, no known EMILY. Pt w excellent functional status, does bike 20-70 miles, no cp or sob. Pt had mechanical fall in garage, no syncope. Informed Consent: The patient's anesthetic plan and its attendant risks and benefits were discussed with the patient/family/POA. Questions were solicited and answers provided to the satisfaction of the patient/family/POA.
--- NOTE | 2025-01-12 10:38 | WPDHPUPDATE1 ---
History and Physical Update Update Date/Time: 01/12/25 10:38 History and Physical has been reviewed, including an updated exam of the patient. There are NO changes in the patient's condition. Risks, benefits, and alternatives have been discussed and questions answered. Patient agrees to proceed with procedure. Left Hip Screw Fixation
[2025-01-12] MEDS: ceFAZolin 2 GM in SODIUM CHLORIDE 0.9% IV 50 ML 100 ML IVPB (10:46)
[2025-01-12] MEDS: LIDO 1%/EPINEPHRINE 1:100,000 50 ML VIAL 30 ML INFILTRATE (10:46)
--- NOTE | 2025-01-12 12:13 | P.OP_ITS ---
Procedure Note - Detailed Date of Procedure 01/12/25 Pre-op Diagnosis Left femoral neck fracture Post-op Diagnosis Same Procedure Performed 1. Left hip Screw Fixation of femoral neck fracture 2. Intra-op Fluoroscopy Left Hip Surgeon Virgilio Dempsey MD Anesthesia General Indications 69 yr old male with Left Hip Minimally displaced femoral neck fracture Findings Left Hip Minimally displaced femoral neck fracture. Description of Procedure After obtaining consent regarding the risk benefits alternatives and complication of a Left hip screw fixation of a femoral neck fracture, which includes but are not limited to infection, nerve or blood vessel injury, AVN, DVT, Nonunion, the patient was then brought to the OR. The Left Hip was marked in the holding area. The patient underwent general anesthesia. Position: Supine, on fracture table with Right Hip and knee flexed at 90 deg at hip and knee. - left lower extremity was placed in slight traction All bony prominences padded. Intraop fluoro was used to verify reduction. Reduction was performed with sight traction and internal rotation. - ap and lateral views were then used to verify reduction. The Right hip was then prepped and draped in the standard sterile fashion Time out was performed to verify the correct site of surgery, correct patient, correct procedure and IV administration of Ancef. 1 inch incision was made over the lateral hip. 1st guide wire placed in the inferior femoral neck and head and the starting position was proximal to the lesser trochanter. 2nd guide wire was positioned superior anterior and the 3rd guide wire was p laced superior posterior. - imaging again used to verify positioning of all 3 guide wires. Screw measured. Lateral cortex then drilled. Inferior screw placed 1st , then the 2nd and 3rd screws placed. - imaging again performed to verify positioning of all screws. All screws were indeed extra articular. Incision was irrigated and closed with 2-0 Vicryl and steristrips. Implants Arthrex Estimated Blood Loss 20 Urine Output 450 Drains No Packing No Pathology None sent Complications None Condition Stable Disposition PACU
[2025-01-12] MEDS: fentaNYL CITRATE INJ (*CRX) 100 MCG/2 ML VIAL 25 MCG IV PUSH ×2 (12:24→12:27)
--- NOTE | 2025-01-12 14:27 | PM.IMPN ---
Progress Note: A&P Assessment and Plan (1) Closed fracture of neck of left femur: Qualifiers: Encounter type: initial encounter Qualified Code(s): S72.002A - Fracture of unspecified part of neck of left femur, initial encounter for closed fracture Code(s): S72.002A - Fracture of unspecified part of neck of left femur, initial encounter for closed fracture Status: Acute Plan Left femoral neck fracture CT hip reviewed Patient had mechanical fall Continue PRN IV morphine Ortho following HTN continue home Losartan HLD continue Statin DVT prophylaxis on Sq lovenox Subjective Date/time seen: 01/12/25 14:27 Interval history: Comfortable at bedside awaiting OR at the time of this encounter Review of Systems Review of Systems: All other systems were reviewed and negative except as noted in the HPI above Exam Narrative: General: alert and comfortable Eyes: EOMI, PERRLA ENNT External ears normal, Neck is supple, no masses, Respiratory systems: Clear to auscultation Cardiovascular S1, S2, normal rhythm, no murmur, rub, or gallop; no thrill or palpable murmurs on palpation. Gastrointestinal: soft, non-tender, and non-distended abdomen with no masses; BS present Skin: no rash, lesions, ulcerations, subcutaneous nodules or induration Musculoskeletal: LLE pain precluded exam Neurologic: Alert and oriented x3, non focal Mental Status Exam: normal affect Objective Data Vital Signs Vital Signs: Vital Signs - 24 hr 01/11/25 20:27 01/11/25 21:42 01/12/25 06:00 Temperature 98.8 F 98.3 F Pulse Rate 59 L 57 L Respiratory Rate 20 16 Blood Pressure 151/71 H 130/70 Pulse Oximetry 96 97 Oxygen Delivery Room Air Oxygen Flow Rate 01/12/25 08:00 01/12/25 09:05 01/12/25 11:49 Temperature 98.5 F 98.1 F Pulse Rate 56 L 54 L Respiratory Rate 16 24 H Blood Pressure 124/68 134/77 Pulse Oximetry 98 100 Oxygen Delivery Room Air Simple Face Mask Oxygen Flow Rate 8 01/12/25 12:00 01/12/25 12:05 01/12/25 12:20 Temperature Pulse Rate 63 58 L 55 L Respiratory Rate 12 15 14 Blood Pressure 143/73 H 146/77 H 155/80 H Pulse Oximetry 100 100 100 Oxygen Delivery Simple Face Mask Simple Face Mask Simple Face Mask Oxygen Flow Rate 8 8 8 01/12/25 12:35 01/12/25 12:50 01/12/25 13:05 Temperature Pulse Rate 57 L 53 L 58 L Respiratory Rate 14 20 18 Blood Pressure 138/68 138/71 145/67 H Pulse Oximetry 95 96 94 Oxygen Delivery Room Air Room Air Room Air Oxygen Flow Rate 01/12/25 13:20 01/12/25 13:38 Temperature 96 F L Pulse Rate 55 L 57 L Respiratory Rate 20 20 Blood Pressure 134/76 142/65 H Pulse Oximetry 95 98 Oxygen Delivery Room Air Oxygen Flow Rate Intake/Output Intake/Output: Intake & Output 01/09/25 01/10/25 01/11/25 01/12/25 23:59 23:59 23:59 23:59 Intake Total 3043.3 400 Output Total 700 1450 Balance 2343.3 -1050 Meds/Results Medications: Active Medications Generic Name Dose Route Start Last Admin Trade Name Freq PRN Reason Stop Dose Admin Acetaminophen 500 mg 01/12/25 11:53 Acetaminophen 500 Mg Tablet PO Q6H PRN Pain Rated 1-3 Hydrocodone Bitart/Acetaminophen 1 tab 01/12/25 11:53 Hydrocodone/Acetaminophen (*Crx) 5-325 Mg Tablet PO Q4H PRN Pain Rated 4-6 Hydrocodone Bitart/Acetaminophen 1 tab 01/12/25 11:53 Hydrocodone/Acetaminophen (*Crx) 10-325 Mg Tablet PO Q4H PRN Pain Rated 7-10 Aspirin 81 mg 01/12/25 21:00 Aspirin 81 Mg Enteric Tablet PO Q12HR PAOLA Atorvastatin Calcium 20 mg 01/11/25 21:00 01/11/25 20:40 Atorvastatin 20 Mg Tablet PO 20 mg HS PAOLA Administration Enoxaparin Sodium 40 mg 01/12/25 09:00 01/12/25 09:00 Enoxaparin 40 Mg/0.4 Ml Syringe SUB-Q Not Given DAILY PAOLA Famotidine 20 mg 01/12/25 21:00 Famotidine 20 Mg Tablet PO Q12HR PAOLA Hydromorphone HCl 1 mg 01/12/25 12:16 Hydromorphone Hcl Inj (*Crx) 2 Mg/Ml Vial IV PUSH Q2H PRN Breakthrough Pain Rated 7-10 or NPO Hydromorphone HCl 0.5 mg 01/12/25 12:17 Hydromorphone Hcl Inj (*Crx) 2 Mg/Ml Vial IV PUSH Q2H PRN Breakthrough Pain Rated 4-6 or NPO Hydroxyzine Pamoate 50 mg 01/12/25 11:53 Hydroxyzine Pamoate 25 Mg Capsule PO Q4H PRN Itching Sodium Chloride 1,000 mls @ 125 mls/hr 01/12/25 11:55 Normal Saline Iv IV CONT .Q8H [facility] Ibuprofen 800 mg in 200 mls @ 400 mls/hr 01/12/25 11:53 Caldolor 800 Mg/200 Ml IVPB Q6H PRN Breakthrough Pain Rated 1-3 or NPO Cefazolin Sodium 2 gm in 50 mls @ 100 mls/hr 01/12/25 19:00 Ancef 2 Gm/D5w 50 Ml IVPB 01/13/25 11:29 Q8H [facility] Losartan Potassium 25 mg 01/11/25 16:05 01/12/25 09:00 Losartan Potassium 25 Mg Tablet PO Not Given DAILY [facility] Naloxone HCl 0.1 mg 01/12/25 11:53 Naloxone Hcl 0.4 Mg/Ml Vial IV PUSH Q2M PRN Opiate Reversal Ondansetron HCl 4 mg 01/12/25 11:53 Ondansetron Inj 4 Mg/2 Ml Vial IV PUSH Q4H PRN Nausea And Vomiting Oxycodone HCl 5 mg 01/12/25 11:31 Oxycodone Hcl (*Crx) 5 Mg Tab Ir PO ONCE PRN Pain Polyethylene Glycol 17 gm 01/13/25 09:00 Polyethylene Glycol 3350 17 Gm Powd.Pack PO QAM [facility] Senna/Docusate Sodium 2 tab 01/12/25 17:00 Senna/Docusate Sodium Tablet PO BID [facility] Radiology Results: ITS Impressions Hip/Pelvis X-Ray 01/10/25 19:46 IMPRESSION: Fracture of the left femoral neck. Chest X-Ray 01/10/25 19:53 IMPRESSION: No acute cardiopulmonary pathology. Hip X-Ray 01/10/25 21:03 IMPRESSION: As above. Hip CT 01/10/25 21:07 IMPRESSION: Impacted fracture of the left femoral neck. Labs Labs: Laboratory Results - last 24 hr 01/12/25 05:48 WBC 9.9 RBC 4.97 Hgb 15.3 Hct 45.9 MCV 92.4 MCH 30.8 MCHC 33.3 RDW 12.8 Plt Count 158 MPV 9.9 Immature Gran % (Auto) 0.3 Neut % (Auto) 63.7 Lymph % (Auto) 23.5 [place] % (Auto) 7.9 Eos % (Auto) 4.2 Baso % (Auto) 0.4 Lymph # (Auto) 2.32 [place] # (Auto) 0.8 H Eos # (Auto) 0.4 H Baso # (Auto) 0.0 Abs Immat Gran (auto) 0.03 Absolute Neuts (auto) 6.3 Absolute Nucleated RBC 0.000 Nucleated RBC % 0.0 Sodium 131 L Potassium 4.1 Chloride 100 Carbon Dioxide 25 Anion Gap 6 BUN 12 D Creatinine 0.77 Estim Creat Clear Calc 90 Estimated GFR > 60 Glucose 138 H Calcium 8.8 Magnesium 1.7 Total Bilirubin 0.7 AST 24 ALT 24 Alkaline Phosphatase 105 Total Protein 6.7 Albumin 3.9
[2025-01-12] MEDS: SENNA/DOCUSATE SODIUM TABLET 2 TAB PO (17:03)
[2025-01-12] MEDS: ceFAZolin 2 GM/D5W 50 ML 2 GM/50 ML BAG IVPB (17:03)
[2025-01-12] MEDS: ASPIRIN 81 MG ENTERIC TABLET PO (21:35)
[2025-01-12] MEDS: ACETAMINOPHEN 500 MG TABLET PO (21:35)
[2025-01-12] MEDS: FAMOTIDINE 20 MG TABLET PO (21:35)
[2025-01-12] MEDS: ATORVASTATIN 20 MG TABLET PO (21:35)
[2025-01-13 00:51] VITALS: BP 143/66; PULSE 60; RESP 18; TEMP 36.4; O2SAT 98
[2025-01-13] MEDS: ceFAZolin 2 GM/D5W 50 ML 2 GM/50 ML BAG IVPB ×2 (02:57→11:02)
[2025-01-13 05:38] VITALS: BP 130/71; PULSE 54; RESP 20; TEMP 36.2; O2SAT 96
[2025-01-13 06:21] LABS: Hematocrit 45.9 % (42.0-52.0); Hemoglobin 15.1 g/dL (14.0-18.0); Immature Granulocyte Percent A 0.4 % (0-0.5); Lymphocytes Absolute Auto 1.46 K/mm3 (0.9-3.2); Mean Corpuscular HGB Conc 32.9 g/dl (32-36); Mean Corpuscular Hemoglobin 30.8 pg (26-34); Mean Corpuscular Volume 93.5 fl (80-100); Nucleated Red Blood Cells Absolute Auto 0.000 K/mm3 (0.0-0.012); Nucleated Red Blood Cells Perc 0.0 % (0.0-0.2); Platelet Count Result 161 k/mm3 (150-375); Red Blood Count 4.91 M/mm3 (4.6-6.20); White Blood Count 12.5 K/mm3 (4.5-10.0)
[2025-01-13 06:43] LABS: Alanine Aminotransferase 21 U/L (6-50); Albumin Level 3.8 g/dL (3.5-5.1); Alkaline Phosphatase 104 U/L (38-126); Anion Gap 9 mmol/L (4-12); Aspartate Amino Transferase 29 U/L (17-59); Bilirubin,Total 0.8 mg/dL (0.2-1.3); Blood Urea Nitrogen 16 mg/dL (9-20); Calcium 8.8 mg/dL (8.4-10.2); Carbon Dioxide 23 mmol/L (22-30); Chloride 102 mmol/L (98-107); Estimated CRCL calculation 83 ml/min; Estimated Glomerular Filt Rate > 60; Glucose 127 mg/dL (65-110); Magnesium 2.0 mg/dL (1.6-2.3); Potassium 4.2 mmol/L (3.4-5.0); Sodium 134 mmol/L (137-145); Total Protein 6.8 g/dL (6.3-8.2)
[2025-01-13 08:00] VITALS: O2SAT 96
[2025-01-13] MEDS: ASPIRIN 81 MG ENTERIC TABLET PO (09:08)
[2025-01-13] MEDS: LOSARTAN POTASSIUM 25 MG TABLET PO (09:08)
[2025-01-13] MEDS: ENOXAPARIN 40 MG/0.4 ML SYRINGE SUB-Q (09:08)
[2025-01-13] MEDS: FAMOTIDINE 20 MG TABLET PO (09:08)
[2025-01-13] MEDS: ACETAMINOPHEN 500 MG TABLET PO ×2 (09:11→14:50)
[2025-01-13 09:38] VITALS: BP 136/64; PULSE 64; RESP 20; TEMP 35.9; O2SAT 98
[2025-01-13] MEDS: SENNA/DOCUSATE SODIUM TABLET 2 TAB PO (11:34)
--- NOTE | 2025-01-13 12:13 | P.PNOP_ITS ---
Progress Note: A&P Assessment and Plan (1) Closed fracture of neck of left femur: Qualifiers: Encounter type: initial encounter Qualified Code(s): S72.002A - Fracture of unspecified part of neck of left femur, initial encounter for closed fracture Code(s): S72.002A - Fracture of unspecified part of neck of left femur, initial encounter for closed fracture Status: Acute Plan Doing well postop, plan to transfer to [facility] - recommend follow up with Dr Dempsey [phone] any clinic day Week of January 23. - ASA 81mg BiD for 6 weeks Subjective Subjective Date/Time Seen: 01/13/25 12:13 Post Op day: 1 Principal diagnosis: Post Op Right Hip Screw Fixation Exam Narrative: Minimal pain, sitting in chair Objective Data Vital Signs Vital Signs: Vital Signs - 24 hr 01/12/25 12:20 01/12/25 12:35 01/12/25 12:50 Temperature Pulse Rate 55 L 57 L 53 L Respiratory Rate 14 14 20 Blood Pressure 155/80 H 138/68 138/71 Pulse Oximetry 100 95 96 Oxygen Delivery Simple Face Mask Room Air Room Air Oxygen Flow Rate 8 01/12/25 13:05 01/12/25 13:20 01/12/25 13:38 Temperature 35.5 C L Pulse Rate 58 L 55 L 57 L Respiratory Rate 18 20 20 Blood Pressure 145/67 H 134/76 142/65 H Pulse Oximetry 94 95 98 Oxygen Delivery Room Air Room Air Oxygen Flow Rate 01/12/25 21:38 01/13/25 00:51 01/13/25 05:38 Temperature 36.6 C 36.4 C 36.2 C L Pulse Rate 63 60 54 L Respiratory Rate 20 18 20 Blood Pressure 130/72 143/66 H 130/71 Pulse Oximetry 94 98 96 Oxygen Delivery Oxygen Flow Rate 01/13/25 08:00 01/13/25 09:12 01/13/25 09:38 Temperature 35.9 C L Pulse Rate 64 Respiratory Rate 20 Blood Pressure 136/64 Pulse Oximetry 96 98 Oxygen Delivery Room Air Room Air Oxygen Flow Rate Intake/Output Intake/Output: Intake & Output 01/10/25 01/11/25 01/12/25 01/13/25 23:59 23:59 23:59 23:59 Intake Total 3043.3 1490 690 Output Total 700 1850 875 Balance 2343.3 -360 -185 Meds/Results Medications: Active Medications Generic Name Dose Route Start Last Admin Trade Name Freq PRN Reason Stop Dose Admin Acetaminophen 500 mg 01/12/25 11:53 01/13/25 09:11 Acetaminophen 500 Mg Tablet PO 500 mg Q6H PRN Administration Pain Rated 1-3 Hydrocodone Bitart/Acetaminophen 1 tab 01/12/25 11:53 Hydrocodone/Acetaminophen (*Crx) 5-325 Mg Tablet PO Q4H PRN Pain Rated 4-6 Hydrocodone Bitart/Acetaminophen 1 tab 01/12/25 11:53 Hydrocodone/Acetaminophen (*Crx) 10-325 Mg Tablet PO Q4H PRN Pain Rated 7-10 Aspirin 81 mg 01/12/25 21:00 01/13/25 09:08 Aspirin 81 Mg Enteric Tablet PO 81 mg Q12HR PAOLA Administration Atorvastatin Calcium 20 mg 01/11/25 21:00 01/12/25 21:35 Atorvastatin 20 Mg Tablet PO 20 mg HS PAOLA Administration Enoxaparin Sodium 40 mg 01/12/25 09:00 01/13/25 09:08 Enoxaparin 40 Mg/0.4 Ml Syringe SUB-Q 40 mg DAILY PAOLA Administration Famotidine 20 mg 01/12/25 21:00 01/13/25 09:08 Famotidine 20 Mg Tablet PO 20 mg Q12HR PAOLA Administration Hydromorphone HCl 1 mg 01/12/25 12:16 Hydromorphone Hcl Inj (*Crx) 2 Mg/Ml Vial IV PUSH Q2H PRN Breakthrough Pain Rated 7-10 or NPO Hydromorphone HCl 0.5 mg 01/12/25 12:17 Hydromorphone Hcl Inj (*Crx) 2 Mg/Ml Vial IV PUSH Q2H PRN Breakthrough Pain Rated 4-6 or NPO Hydroxyzine Pamoate 50 mg 01/12/25 11:53 Hydroxyzine Pamoate 25 Mg Capsule PO Q4H PRN Itching Ibuprofen 800 mg in 200 mls @ 400 mls/hr 01/12/25 11:53 Caldolor 800 Mg/200 Ml IVPB Q6H PRN Breakthrough Pain Rated 1-3 or NPO Losartan Potassium 25 mg 01/11/25 16:05 01/13/25 09:08 Losartan Potassium 25 Mg Tablet PO 25 mg DAILY PAOLA Administration Naloxone HCl 0.1 mg 01/12/25 11:53 Naloxone Hcl 0.4 Mg/Ml Vial IV PUSH Q2M PRN Opiate Reversal Ondansetron HCl 4 mg 01/12/25 11:53 Ondansetron Inj 4 Mg/2 Ml Vial IV PUSH Q4H PRN Nausea And Vomiting Oxycodone HCl 5 mg 01/12/25 11:31 Oxycodone Hcl (*Crx) 5 Mg Tab Ir PO ONCE PRN Pain Polyethylene Glycol 17 gm 01/13/25 09:00 01/13/25 09:07 Polyethylene Glycol 3350 17 Gm Powd.Pack PO Not Given QAM PAOLA Senna/Docusate Sodium 2 tab 01/12/25 17:00 01/13/25 11:34 Senna/Docusate Sodium Tablet PO 2 tab BID PAOLA Administration Radiology Results: ITS Impressions Hip/Pelvis X-Ray 01/10/25 19:46 IMPRESSION: Fracture of the left femoral neck. Chest X-Ray 01/10/25 19:53 IMPRESSION: No acute cardiopulmonary pathology. Hip X-Ray 01/10/25 21:03 IMPRESSION: As above. Hip CT 01/10/25 21:07 IMPRESSION: Impacted fracture of the left femoral neck. Intraoperative X-Ray 01/12/25 16:00 IMPRESSION: 1. Near-anatomic alignment post bike screw fixation of a nondisplaced transcervical fracture of the proximal left femur. Labs Labs: Laboratory Results - last 24 hr 01/13/25 05:47 WBC 12.5 H RBC 4.91 Hgb 15.1 Hct 45.9 MCV 93.5 MCH 30.8 MCHC 32.9 RDW 12.6 Plt Count 161 MPV 10.2 Immature Gran % (Auto) 0.4 Neut % (Auto) 81.5 H Lymph % (Auto) 11.7 L [place] % (Auto) 6.3 Eos % (Auto) 0.0 Baso % (Auto) 0.1 L Lymph # (Auto) 1.46 [place] # (Auto) 0.8 H Eos # (Auto) 0.0 Baso # (Auto) 0.0 Abs Immat Gran (auto) 0.05 H Absolute Neuts (auto) 10.2 H Absolute Nucleated RBC 0.000 Nucleated RBC % 0.0 Sodium 134 L Potassium 4.2 Chloride 102 Carbon Dioxide 23 Anion Gap 9 BUN 16 Creatinine 0.84 Estim Creat Clear Calc 83 Estimated GFR > 60 Glucose 127 H Calcium 8.8 Magnesium 2.0 Total Bilirubin 0.8 AST 29 ALT 21 Alkaline Phosphatase 104 Total Protein 6.8 Albumin 3.8
--- NOTE | 2025-01-13 15:51 | P.DS_ITS ---
DS: Admitting Diagnosis Discharge Date 01/13/25 Admitting Diagnosis left hip pain after a fall DS: Discharge Diagnosis Discharge Diagnosis (1) Closed fracture of neck of left femur: Qualifiers: Encounter type: initial encounter Qualified Code(s): S72.002A - Fracture of unspecified part of neck of left femur, initial encounter for closed fracture Code(s): S72.002A - Fracture of unspecified part of neck of left femur, initial encounter for closed fracture Status: Acute DS: Summary Hospital Course Hospital Course: 69 yo male with PMH of HTN, HLD who presented to the ER on account of left hip pain following a fall. Patient noted he was in his usual state of health until about 4 pm yesterday when he tripped on a box and fell. Immedially noted left hip pain which caused him to present to the ER for proper eval and care. Denies any chest pain, SOB, palpitation , lightheadedness and focal deficits Er eval notable for BP 122/74, labs unremarkable. Xray hip positive for Left femoral neck fracture. Ortho was consulted prior to admission Patient underwent left hop screw fixation of femoral neck fracture, PT/OT involved and evaluated patient. recommended acute rehab. Discharged on PRN pain control hydrocodone/tylenol 10/325mg q6 prn patient will continue Aspirin 325mg for DVT prophylaxis F/u with PCP in 3-5 days F/u with ortho as instructed Time Spent with Patient Time attestation: Total time spent providing and/or coordinating discharge services: DS: Data Data Completed and Pending Labs on day of discharge: Labs from last 24 hours 01/13/25 05:47 WBC 12.5 H RBC 4.91 Hgb 15.1 Hct 45.9 MCV 93.5 MCH 30.8 MCHC 32.9 RDW 12.6 Plt Count 161 MPV 10.2 Immature Gran % (Auto) 0.4 Neut % (Auto) 81.5 H Lymph % (Auto) 11.7 L [place] % (Auto) 6.3 Eos % (Auto) 0.0 Baso % (Auto) 0.1 L Lymph # (Auto) 1.46 [place] # (Auto) 0.8 H Eos # (Auto) 0.0 Baso # (Auto) 0.0 Abs Immat Gran (auto) 0.05 H Absolute Neuts (auto) 10.2 H Absolute Nucleated RBC 0.000 Nucleated RBC % 0.0 Sodium 134 L Potassium 4.2 Chloride 102 Carbon Dioxide 23 Anion Gap 9 BUN 16 Creatinine 0.84 Estim Creat Clear Calc 83 Estimated GFR > 60 Glucose 127 H Calcium 8.8 Magnesium 2.0 Total Bilirubin 0.8 AST 29 ALT 21 Alkaline Phosphatase 104 Total Protein 6.8 Albumin 3.8 Discharge Plan Discharge Attending physician on discharge: Queenie Martinez Consulting providers: Virgilio Dempsey Discharging Clinician: Queenie Martinez Anticipated Discharge Date/Time: 01/13/25 15:48 Patient Disposition: [facility] Activity: as tolerated Diet: as tolerated and regular Patient Language: Kinyarwanda Follow-up/Referrals: Virgilio Dempsey MD [Physician] - (F/u with Ortho as instructed ) Valerie Johnson NP [Primary Care Provider] - (F/u with PCP in 3-5 days ) Discharge Medications: New hydrocodone-acetaminophen 10-325 mg tablet 1 tablet PO Q6H PRN (Reason: pain) 10 Days Qty: 10 0RF Continued loratadine 10 mg capsule 10 mg PO DAILY [id number] Tablet 1 tablet PO DAILY coenzyme Q10 100 mg capsule 100 mg PO DAILY cholecalciferol (vitamin D3) 50 mcg (2,000 unit) capsule 50 mcg PO DAILY saw palmetto 450 mg capsule 450 mg PO DAILY Rx Instructions: give with food (meal/snack) ascorbic acid (vitamin C) 1,000 mg capsule 1 g PO DAILY cranberry extract 650 mg capsule 650 mg PO DAILY Rx Instructions: administer with a meal losartan 25 mg tablet 25 mg PO DAILY [facility] Men 50 Plus [phone] mcg tablet 1 tablet PO DAILY naproxen sodium [Aleve] 220 mg tablet 220 mg PO DAILY atorvastatin 20 mg tablet 20 mg PO HS aspirin 325 mg tablet 325 mg PO DAILY Qty: 90 4RF Date of admission: 01/11/25 07:47 Primary Care Provider: Valerie Johnson Admitting Provider: Kathryn Mackey Attending physician on admission: Queenie Martinez Condition: Stable
== END 2025-01-13 17:38 | DRG 482 ==
LOC: ANHED 21:55 → ANH3MEDSUR 22:48
PROVIDERS: Orthopaedic Surgery; Admitting Provider Internal Medicine; Emergency Provider Emergency Medicine; PCP Nurse Practitioner; Visit Provider Internal Medicine
DX: S72.002A Fracture of unspecified part of neck of left femur, initial encounter for closed fracture (principal); W01.0XXA Fall on same level from slipping, tripping and stumbling without subsequent striking against object, initial encounter; I10 Essential (primary) hypertension; E78.5 Hyperlipidemia, unspecified; Z85.828 Personal history of other malignant neoplasm of skin; Z79.82 Long term (current) use of aspirin; Z79.899 Other long term (current) drug therapy
CPT/HCPCS: 36415; 71045; 73501; 73502; 73700; 80053; 83735; 85025; 85610; 85730; 93005; 96374; 96376; 97110; 97116; 97161; 97165; 97530; 97535; 99199; 99285; J0690; A9270; J1100; J1171; J1650; J2003; J2004; J2405; J2704; J3010; J7120